=== PATIENT | female | born 1955 | race Caucasian/White ===

== ENCOUNTER → 2017-05-02 | Outpatient (CLI) | payer BC ==
[~2017-05-02] MED LIST: ESCI10TA55 PO; LISI1TAB6 PO
--- NOTE | 2017-05-02 13:42 | Diagnostic Imaging Report ---
PROCEDURE: US Thyroid. TECHNIQUE: Multiple real-time grayscale images were obtained of the thyroid in various projections. INDICATION: Thyroid nodule. FINDINGS: The right thyroid lobe is 4.5 x 1.3 x 1.3 cm. The left lobe is 3.2 x 1.1 x 1.1 cm. There is a nodule in the left lobe measuring 0.5 x 0.4 x 0.5 cm with peripheral vascularity seen. There is another nodule in the right lobe measuring 0.5 cm superiorly. No other nodules seen. When compared to the previous exam the right thyroid nodule was seen previously. IMPRESSION: Nonspecific thyroid nodules up to 0.5 cm seen bilaterally. Dictated by: Dictated on workstation # [id number]
--- NOTE | 2017-05-02 15:32 | Diagnostic Imaging Report ---
Bilateral screening mammogram 2D views with tomosynthesis. The current study was also evaluated with a Computer Aided Detection (CAD) system. INDICATION: Screening. No current complaints stated on the questionnaire. COMPARISON: 03/14/2013. FINDINGS: The breasts are composed of scattered fibroglandular densities. There are occasional benign-appearing calcifications. Allowing for technique and positional differences, no suspicious change is seen. IMPRESSION: No significant change. ACR BI-RADS Category 2: Benign findings. Result letter will be mailed to the patient. Note: At least 10% of breast cancer is not imaged by mammography. Dictated by: Dictated on workstation # [id number]
== END ==
LOC: RAD 11:09
PROVIDERS: ATTEND Nurse Practitioner Family
DX: Z12.31 Encounter for screening mammogram for malignant neoplasm of breast (principal); E04.2 Nontoxic multinodular goiter
CPT/HCPCS: 76536; 77067

== ENCOUNTER → 2017-09-13 | Outpatient (CLI) | payer OTHER ==
--- NOTE | 2017-09-13 11:08 | Diagnostic Imaging Report ---
Right knee at 1025 hours. INDICATION: Knee pain. 3 views were obtained. FINDINGS: There is no fracture, dislocation or acute bony abnormality. As noted on the prior exam of 02/16/2015, there is mild/moderate narrowing of the medial compartment of the knee joint and mild narrowing of the patellofemoral space. Lateral compartment is fairly well-maintained. The soft tissues are unremarkable. IMPRESSION: 1. There is no evidence for an acute bony abnormality. 2. The degenerative disease involving the knee joint seen on the prior exam in 2014 has not progressed. Dictated by: Dictated on workstation # [id number]
== END ==
LOC: RAD 09:55
PROVIDERS: ATTEND Surgery
DX: Z02.71 Encounter for disability determination (principal); M17.11 Unilateral primary osteoarthritis, right knee
CPT/HCPCS: 73560

== ENCOUNTER 2019-01-23 19:44 | Outpatient (CLI) | payer MEDICARE, OTHER | END 2019-01-24 06:10 | disposition home or self-care (01) | LOC: SLEEP 19:44 | PROVIDERS: ATTEND Family Medicine | DX: G47.10 Hypersomnia, unspecified (principal); G47.36 Sleep related hypoventilation in conditions classified elsewhere; R06.83 Snoring; I10 Essential (primary) hypertension | CPT/HCPCS: 95810 ==

== ENCOUNTER 2019-05-31 11:15 | Outpatient (RCR) | payer MEDICARE, OTHER | END 2019-05-31 12:12 | disposition home or self-care (01) | PROVIDERS: ATTEND Nurse Practitioner Family | DX: M54.9 Dorsalgia, unspecified (principal); R26.89 Other abnormalities of gait and mobility ==

== ENCOUNTER → 2019-10-16 | Outpatient (CLI) | payer MEDICARE, OTHER ==
[~2019-10-16] MED LIST changes: +LISI1TAB29 PO; -LISI1TAB6 PO
--- NOTE | 2019-10-16 15:00 | Diagnostic Imaging Report ---
INDICATION: Routine screening. Comparison is made prior mammogram from 05/02/2017 and 03/05/2013. 2-D and 3-D bilateral screening mammography was performed with CAD. Scattered fibroglandular densities are identified bilaterally. There are densities identified in the central aspects of both breasts on the MLO views. While these most likely represent superimposed tissue, additional views are recommended. No definite corresponding density on the CC view is identified. There are vascular calcifications. No malignant-appearing microcalcifications are seen. Axillae are unremarkable. IMPRESSION: BI-RADS 0 Bilateral breast densities. Additional views are recommended for further evaluation. Dictated by: Dictated on workstation # [id number]
--- NOTE | 2019-10-16 16:31 | Diagnostic Imaging Report ---
INDICATION: Postmenopausal state, screening for osteoporosis COMPARISON: 06/16/2007 FINDINGS: AP Spine L1-L4: [BMD (g/cm2): 1.058] [T-Score: -1.2] [Z-Score: 0.2] [BMD Previous: 1.239] [BMD % Change: -14.6] LT Hip Neck: [BMD (g/cm2): 0.771] [T-Score: -1.9] [Z-Score: -0.6] LT Hip Total: [BMD (g/cm2):0.827] [T-Score:-1.4] [Z-Score: -0.4] [BMD Previous: 0.935] [BMD % Change: -11.6] RT Hip Neck: [BMD (g/cm2):0.766] [T-Score:-2.0] [Z-Score:-0.6] RT Hip Total: [BMD (g/cm2):0.801] [T-score:-1.6] [Z-Score:-0.6] [BMD Previous:0.978] [BMD % Change:-18.1] *Indicates significant change from prior examination based on 95% confidence level. World Health Organization criteria for BMD interpretation classify patients as Normal (T-score at or above -1.0), Osteopenic (T-score between -1.0 and -2.5) or Osteoporotic (T-score at or below -2.5). LIMITATIONS AND MODIFICATION: None. FRACTURE RISK (FRAX SCORE): The ten year probability of (%): Major Osteoporotic Fracture: [10.7] Hip Fracture: [1.6] IMPRESSION: 1. Osteopenia (Low bone mass). 2. No significant change in bone mineral density since prior examination. 3. See below National Osteoporosis Foundation guidelines on when to potentially initiate pharmacologic therapy. Based on the National Osteoporosis Foundation Guidelines, pharmacologic treatment should be initiated in any of the following, unless clinical conditions suggest otherwise: * Any patient with prior fragility fracture of the hip or vertebrae. A spine fracture indicates 5X risk for subsequent spine fracture and 2X risk for subsequent hip fracture. * Osteoporosis (T-score <-2.5). * Postmenopausal women and men age 50 and older with low bone mass/osteopenia (T-score between -1.0 and -2.5) by DXA and 10-year major osteoporotic fracture greater than 20% or a 10-year probability of hip fracture greater than 3%. These fracture risks are supplied above in the FRAX score, if applicable. * Clinician judgement and/or patient preferences may indicate treatment for people with 10-year fracture probabilities above or below these levels. Dictated by: Dictated on workstation # [id number]
== END ==
LOC: RAD 13:01
PROVIDERS: ATTEND Family Medicine
DX: Z13.820 Encounter for screening for osteoporosis (principal); Z12.31 Encounter for screening mammogram for malignant neoplasm of breast; M85.80 Other specified disorders of bone density and structure, unspecified site; Z78.0 Asymptomatic menopausal state
CPT/HCPCS: 77067; 77080

== ENCOUNTER 2019-12-25 05:40 | Outpatient (RCR) | payer MEDICARE, OTHER | END 2019-12-25 12:00 | disposition home or self-care (01) | LOC: PREOP 05:40 | PROVIDERS: ATTEND Surgery | DX: Z01.818 Encounter for other preprocedural examination (principal) ==

== ENCOUNTER 2020-01-17 05:41 | Outpatient (RCR) | payer MEDICARE, OTHER ==
[~2020-01-17] VITALS: Ht 157 cm; Wt 72.7 kg
[~2020-01-17 05:41] MED LIST changes: +DULO60CA6 PO; +FEXO1TAB43 PO; +LISI10TA2 PO; +PANT40TA3 PO
[2020-01-22] MEDS ORDERED: SUCR1TAB36 PO (08:54)
== END 2020-01-17 15:05 | disposition home or self-care (01) ==
LOC: PREOP 05:41
PROVIDERS: ATTEND Surgery
DX: Z01.812 Encounter for preprocedural laboratory examination (principal); K21.9 Gastro-esophageal reflux disease without esophagitis; Z20.828 Contact with and (suspected) exposure to other viral communicable diseases
CPT/HCPCS: 87635

== ENCOUNTER 2020-01-22 06:55 | Day surgery (SDC) | payer MEDICARE, OTHER ==
[~2020-01-22] VITALS: Ht 157 cm; Wt 72.7 kg
[2020-01-22 07:00] VITALS: BP 157/81
--- OUTSIDE RECORDS SUMMARY | 2020-01-22 07:03 | XMS REPORT | Summary of Care ---
Author Author [facility] er Organization [facility] er Address Unknown Phone Unavailable Encounter [facility] Riggs [id number] Date(s): 03/24/17 - 03/24/17 [facility] [address] [id number] Final: Macular cyst, hole, or pseudohole, right eye Final: Essential (primary) hypertension Final: Hyperlipidemia, unspecified Final: Body mass index (BMI) 30.0-30.9, adult Discharge Disposition: Home - 01 Attending Physician: PAULA ZHANG MD Admitting Physician: PAULA ZHANG MD Referring Physician: PAULA ZHANG MD Vital Signs Most recent to 1 oldest [Reference Range]: Vital Signs Routine Assessment Status/Type (03/24/17 8:59 AM) Temperature 97.8 DegF [96.8-99.7 DegF] (03/24/17 8:45 AM) Temp Method Temporal (03/24/17 8:45 AM) Heart Rate 77 bpm (03/24/17 8:59 AM) Respiratory Rate 16 br/min [14-20 br/min] (03/24/17 8:45 AM) Blood Pressure 137/80 mmHg [90-180/50-90 mmHg] (03/24/17 8:59 AM) NIBP MAP Calc 84 (03/24/17 8:53 AM) BP Cuff Size Large (03/24/17 8:45 AM) Problem List No data available for this section Allergies, Adverse Reactions, Alerts No Known Allergies Medications Aleve 220 mg, PO, Q12H (Every 12 hours), PRN as needed for pain, 0 Refill(s), Indicati on: Pain Start Date: 03/21/17 Status: Ordered fenofibrate 120 mg oral tablet = 1 TAB, PO, Daily, 0 Refill(s), Indication: High Cholesterol Start Date: 03/21/17 Status: Ordered hydroCHLOROthiazide-lisinopril 12.5 mg-10 mg oral tablet 1 TAB, PO, Daily, 0 Refill(s), Indication: High Blood Pressure Start Date: 03/21/17 Status: Ordered ibuprofen 800 mg, PO, Q8H (Every 8 hours), PRN as needed for pain, 0 Refill(s), Indication : Pain Start Date: 03/21/17 Status: Ordered Pepcid 20 mg oral tablet 1 TAB, PO, Daily, 0 Refill(s), Indication: Reflux Start Date: 03/21/17 Status: Ordered PROzac 20 mg oral capsule 1 CAP, PO, Daily, 0 Refill(s), Indication: Depression Start Date: 03/21/17 Status: Ordered Tylenol 1,000 mg, PO, BID (2 times a day), PRN as needed for pain, 0 Refill(s), Indicati on: Pain Start Date: 03/21/17 Status: Ordered Results No data available for this section Immunizations No data available for this section Procedures Procedure Date Related Diagnosis Body Site Eye Vitrectomy Mini1 03/24/17 1auto-populated from documented surgical case Social History No data available for this section Functional Status No data available for this section Assessment and Plan No data available for this section Hospital Discharge Instructions No data available for this section
--- OUTSIDE RECORDS SUMMARY | 2020-01-22 07:03 | XMS REPORT | Summary of Care ---
Author Author [facility] er Organization [facility] er Address Unknown Phone Unavailable Encounter [facility] Riggs [id number] Date(s): 03/24/17 - 03/24/17 [facility] [address] [address] Discharge Disposition: Home - 01 Attending Physician: [...]
--- OUTSIDE RECORDS SUMMARY | 2020-01-22 07:03 | XMS REPORT | Summary of Care ---
Author Author [facility] er Organization [facility] er Address Unknown Phone Unavailable Encounter [facility] Riggs [id number] Date(s): 03/24/17 - 03/24/17 [facility] [address] [address] Discharge Disposition: Home - 01 Attending Physician: [...]
--- OUTSIDE RECORDS SUMMARY | 2020-01-22 07:03 | XMS REPORT | Summary of Care ---
Author Author [facility] er Organization [facility] er Address Unknown Phone Unavailable Encounter [facility] Riggs [id number] Date(s): 03/24/17 - 03/24/17 [facility] [address] [address] Discharge Disposition: Home - 01 [...]
--- OUTSIDE RECORDS SUMMARY | 2020-01-22 07:04 | XMS REPORT | Summary of Care ---
Author Author [facility] er Organization [facility] er Address Unknown Phone Unavailable Encounter [facility] Riggs [id number] Date(s): 03/24/17 - 03/24/17 [facility] [address] [address] Final: Macular cyst, hole, or pseudohole, right [...]
--- OUTSIDE RECORDS SUMMARY | 2020-01-22 07:04 | XMS REPORT | Summary of Care ---
Author Author [facility] er Organization [facility] er Address Unknown Phone Unavailable Encounter [facility] Riggs [id number] Date(s): 03/24/17 - 03/24/17 [facility] [address] [address] Discharge Disposition: Home - 01 Attending [...]
--- OUTSIDE RECORDS SUMMARY | 2020-01-22 07:04 | XMS REPORT | Continuity of Care Document ---
Author [facility] Organization [facility] Address Unknown Phone Unavailable Care Team Providers Care Protozoologist Name Role Phone [facility] Unavailable Unavailable Problems Problem Status Onset Date Classification Date Reported Comments Source MACULAR CYST, HOLE, OR PSEUDOHOLE, RIGHT Active 03/24/2017 [facility] ESSENTIAL (PRIMARY) HYPERTENSION Active 03/24/2017 [facility] HYPERLIPIDEMIA, UNSPECIFIED Ac tive 03/24/2017 [facility] BODY MASS INDEX (BMI) 30.0-30.9, ADULT Active 03/24/2017 [facility] Macular cyst, hole, or pseudohole, right eye Final 04/03 [facility] Essential (primary) hypertension Final 04/03 [facility] Hyperlipidemia, unspecified Final 04/03/2017 [facility] Body mass index (BMI) 30.0-30.9, adult Final 04/03 [facility] er Medications Medication Details Route Status Patient Instructions Ordering Provider Order Date Source Tylenol 1,000 mg, PO, BID (2 t imes a day), PRN as needed for pain, 0 Refill(s), Indication: Pain Active 03/21/2017 [facility] Famotidine 20 MG Oral Tablet [Pepcid] 1 TAB, PO, Daily, 0 Refill(s), Indication: Reflux Active 03/21/2017 [facility] Aleve 220 mg, PO, Q12H (Every 12 hours), PRN as needed for pain, 0 Refill(s), Indication: Pain Active 03/21/2017 [facility] Fenofibrate 120 MG Oral Tablet = 1 TAB, PO, Daily, 0 Refill(s), Indication: High Cholesterol Active 03/21/2017 [facility] Ibuprofen 800 mg, PO, Q8H (Sumi ry 8 hours), PRN as needed for pain, 0 Refill(s), Indication: Pain Active 03/21/2017 [facility] Fluoxetine 20 MG Oral Capsule [Prozac] 1 CAP, PO, Daily, 0 Refill(s), Indication: Depression Active 03/21/2017 [facility] Hydrochlorothiazide 12.5 MG / Lisinopril 10 MG Oral Tablet 1 TAB, PO, Daily, 0 Refill(s), Indicatio n: High Blood Pressure Active 03/21/2017 [facility] Allergies, Adverse Reactions, Alerts No Known Medication Allergies Immunizations No Data Provided for This Section Results Order Name Results Value Reference Range Date Interpretation Comments Source No data available for this section No data available for this section [facility] Pathology Reports No Data Provided for This Section Diagnostic Reports No Data Provided for This Section Consultation Notes Results Value Date Source Operative Report Patient: CARLOS JEONG Age: 61 years Sex: Female : 1955 Associated Diagnoses: None Author: PAULA ZHANG MD Operative Information Post-Op Diagnosis: Same as Pre-Operative Diagnosis. Procedure: 1. 25 gauge transconjunctival pars plana vitrectomy. 2. Membranectomy with removal of accounting intern al limiting membrane. 3. Injection of autologous plasma and t hrombin. 4. Air/fluid/gas exchange with 18% SF6. All was done to the Right eye. . Indication: Macular Hole with PLTH. Surgeon(s): PAULA ZHANG MD. Description of Procedure: The patient was taken to the operating room and placed onto the operating table in the supine position. After appropriate monitors and IV were started, the patient received IV sedation. Under sedation, a retrobulbar injection consisting of a 50/50 mixture of Lidocaine 2% and Marcaine 0.75% was given to the retrobulbar space of the Right eye. Right eye was then prepped and draped in the usual standard fashion. A wire lid speculum was placed in the Right eye. 25 gauge transconjunctival trocars were placed 4.0 mm posterior to the limbus at the 8:00, 10:00 and 2:00 position. The infusion cannula was placed into the inferotemporal cannula. The light pipe was placed in the superotemporal cannula. The BIOM was swung into position and focused. A total and complete pars plana vitrectomy was done. ICG was used to stain the internal limiting membrane. This was removed with positive action forceps. An air/fluid exchange was done. One drop of autologous plasma and 1 drop of thrombin was placed into the macular hole. 50 mL of 18% SF6 was lavaged into the infusion cannula and out through the superonasal cannula. All 3 cannulas were removed and felt to be self sealing. Lid speculum was removed and TobraDex ointment was injected into the superior fornix. The eye was tight patched. The patient was taken to the recovery room in stable condition. There were no perioperative complications to the surgery. . Complications: None. Estimated blood loss: None. Patient Condition: Good. 03/30/2017 [facility] Discharge Summaries No Data Provided for This Section History and Physicals No Data Provided for This Section Vital Signs Vital Sign Value Date Comments Source Vital Signs Status/Type Routin e Assessment (03/24/17 8:59 AM) 03/24/2017 [facility] Inet NIBP Systolic 137 mm[Hg] 03/24/2017 [facility] Inet NIBP Diastolic 80 mm[Hg] 03/24/2017 [facility] Heart Rate 77 bpm 03/24/2017 [facility] NIBP MAP Calc 84 03/24/2017 [facility] Temperature 97.8 [degF] 03/24/2017 [facility] Temp Method Temporal (03/24/17 8:45 AM) 03/24/2017 [facility] Respiratory Rate 16 br/min 03/24/2017 [facility] BP Cuff Size Large (03/24/17 8: 45 AM) 03/24/2017 [facility] Encounters Location Location Details Encounter Type Encounter Number Reason For Visit Attending Provider ADM Date DC Date Status Source [facility] Outpatient Day Surgery [id number] PAULA ZHANG MD 03/24/2017 03/24/2017 [facility] Procedures Procedure Code Date Perfomer Comments Source Eye Vitrectomy Mini<sup>1</sup> 03/24/2017 auto-populated from documented surgical case [facility] Plan of Care No Data Provided for This Section Social History No Data Provided for This Section Assessment and Plan No Data Provided for This Section Family History No Data Provided for This Section Advance Directives No Data Provided for This Section Functional Status No Data Provided for This Section
--- OUTSIDE RECORDS SUMMARY | 2020-01-22 07:04 | XMS REPORT | Summary of Care ---
Author Author [facility] er Organization [facility] er Address Unknown Phone Unavailable Encounter [facility] Riggs [id number] Date(s): 03/24/17 - 03/24/17 [facility] [address] [address] Final: Macular cyst, hole, or pseudohole, right [...]
--- OUTSIDE RECORDS SUMMARY | 2020-01-22 07:04 | XMS REPORT | Summary of Care ---
Author Author [facility] er Organization [facility] er Address Unknown Phone Unavailable Encounter [facility] Riggs [id number] Date(s): 03/24/17 - 03/24/17 [facility] [address] [address] Final: Macular cyst, hole, or pseudohole, right [...]
--- OUTSIDE RECORDS SUMMARY | 2020-01-22 07:04 | XMS REPORT | Summary of Care ---
Author Author [facility] er Organization [facility] er Address Unknown Phone Unavailable Encounter [facility] Riggs [id number] Date(s): 03/24/17 - 03/24/17 [facility] [address] [address] Final: Macular cyst, hole, or [...]
--- OUTSIDE RECORDS SUMMARY | 2020-01-22 07:04 | XMS REPORT | CCD ---
Author Author Flavia Cox Organization Marcia Ponce MD, [facility] Address [address] [place] [address] Phone Care Team Providers Care Flow Trader Name Role Phone PP Unavailable CCM Unavailable Summary Purpose Interface Exchange Insurance Providers Payer name Policy type / Coverage type Covered alliance party ID Effective Begin Date Effective End Date WPS Medicare Part B Medicare Part B [id number] Unknown Unknown Cigna Medicare Part B No Plan Member ID Provided Unknown Unknown Family history Mother Diagnosis Age At Onset Arthritis Unknown Stroke Unknown Hyperlipidemia Unknown Brother Diagnosis Age At Onset Hyperlipidemia Unknown Arthritis Unknown Father Diagnosis Age At Onset Hyperlipidemia Unknown Coronary Artery Disease Unknown Social History Social History Element Codes Description Effective Dates Marital status Unknown M arried DAVID 11/27/2018 Number of children Unknown 2 11/27/2018 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 11/27/[address]: 944127930 Never smoker 11/27/2018 Alcohol history Unknown occasionally drinks alcohol 11/27/2018 Allergies, Adverse Reactions, Alerts Substance Reaction Codes Entered Date Inactivated Date Status * NO KNOWN DRUG DINA RGIES Unknown 11/27/2018 No Inactive Date Active Past Medical History Illness Codes Condition Status Onset Date Resolved Date Acute laryngopharyng itis ICD-9: 465.0 ICD-10: J06.0 Active 02/07/2019 Unknown Cough ICD-9: 786.2 ICD-10: R05 Active 04/16/2019 Unknown Other allergic rhinitis ICD-9: 477.8 ICD-10: J30.89 Active 11/27/2018 Unknown Gastro-esophageal re flux disease without esophagitis ICD-9: 530.81 ICD-10: K21.9 Active 11/27/2018 Unknown Other dorsalgia ICD-9: 724.5 ICD-10: M54.89 Active 04/05/2019 Unknown Other idiopathic sco liosis, thoracic region ICD-9: 737.30 ICD-10: M41.24 Active 04/05/2019 Unknown Obstructive sleep ap heber (adult) (pediatric) ICD-9: 327.23 ICD-10: G47.33 Active 01/03/2019 Unknown Other hypersomnia ICD-9: 780.54 ICD-10: G47.19 Active 01/03/2019 Unknown Snoring ICD-9: 786.09 ICD-10: R06.83 Active 01/03/2019 Unknown Generalized anxiety disorder ICD-9: 300.02 ICD-10: F41.1 Active 11/27/2018 Unknown Major depressive dis order, recurrent, mild ICD-9: 296.31 ICD-10: F33.0 Active 11/27/2018 Unknown Problems Condition Codes Effectiv e Dates Condition Status Acute laryngopharyng itis ICD-9: 465.0 ICD-10: J06.0 02/07/2019 Active Cough ICD-9: 786.2 ICD-10: R05 04/16/2019 Active Other allergic rhinitis ICD-9: 477.8 ICD-10: J30.89 11/27/2018 Active Gastro-esophageal re flux disease without esophagitis ICD-9: 530.81 ICD-10: K21.9 11/27/2018 Active Other dorsalgia ICD-9: 724.5 ICD-10: M54.89 04/05/2019 Active Other idiopathic sco liosis, thoracic region ICD-9: 737.30 ICD-10: M41.24 04/05/2019 Active Obstructive sleep ap heber (adult) (pediatric) ICD-9: 327.23 ICD-10: G47.33 01/03/2019 Active Other hypersomnia ICD-9: 780.54 ICD-10: G47.19 01/03/2019 Active Snoring ICD-9: 786.09 ICD-10: R06.83 01/03/2019 Active Generalized anxiety disorder ICD-9: 300.02 ICD-10: F41.1 11/27/2018 Active Major depressive dis order, recurrent, mild ICD-9: 296.31 ICD-10: F33.0 11/27/2018 Active Medications Medication Codes Instruc tions Start Date Stop Date Sta tus Fill Instructions amoxicillin 500 mg c apsule RxNorm: 334895 1 Capsule(s) PO TID 04/16/2019 04/25/2019 Active prednisone 20 mg tablet RxNorm: 620425 2 Tablet(s) PO daily 04/16/2019 04/20/2019 Inactive pantoprazole 40 mg t ablet,delayed release RxNorm: 525886 1 Tablet(s) PO QPM 04/05/2019 03/29/2020 Ac tive Zithromax Z-Carlos 250 mg tablet RxNorm: 783669 Tablet(s) PO UD 02/07/2019 No Stop Date Active Kenalog 40 mg/mL denise pension for injection RxNorm: 1044413 1 Milliliter(s) Inj 02/07/2019 02/07/2019 In active lisinopril 10 mg tablet RxNorm: 797870 1 Tablet(s) PO daily 01/16/2019 07/14/2019 Active meloxicam 7.5 mg tablet RxNorm: 545357 1 Tablet(s) PO daily . May increase to t wice daily if needed 12/05/2018 12/04/2018 Inactive meloxicam 7.5 mg tablet RxNorm: 096081 1 Tablet(s) PO daily . May increase to t wice daily if needed 12/05/2018 03/04/2019 Inactive Cymbalta 60 mg capsu le,delayed release RxNorm: 533900 1 Capsule(s) PO daily 11/27/2018 05/25/2019 Ac tive Lexapro 20 mg tablet RxNorm: 1 Tablet(s) PO daily 11/27/2018 11/27/2018 Inactive Kenalog 40 mg/mL denise pension for injection RxNorm: 3774444 Milliliter(s) Inj 11/27/2018 11/27/2018 In active lisinopril 10 mg tablet RxNorm: 941386 1 Tablet(s) PO daily No Start Date 01/15/2019 Inactive Medication Administered Medication Codes Instruc tions Start Date Status Kenalog 40 mg/mL suspension for injection RxNorm: 1071015 1Milliliter 02/07/2019 N o longer Active Kenalog 40 mg/mL suspension for injection RxNorm: 0942327 Milliliter 11/27/2018 No longer Active Immunizations No Immunization data Assessments Condition Codes Effectiv e Dates Other allergic rhinitis ICD-10: J30. 89 ICD-9: 477.8 04/16/2019 Cough ICD-10: R05 ICD-9: 786.2 04/16/2019 Acute laryngopharyngitis ICD-10: J06 .0 ICD-9: 465.0 04/16/2019 Other dorsalgia ICD-10: M54.89 ICD-9: 724.5 04/05/2019 Gastro-esophageal reflux disease without esophagitis ICD-10: K21.9 ICD-9: 530.81 04/05/2019 Other idiopathic scoliosis, thoracic region ICD-10: M41.24 ICD-9: 737.30 04/05/2019 Obstructive sleep apnea (adult) (pediatric) ICD-10: G47.33 ICD-9: 327.23 01/03/2019 Snoring ICD-10: R06.83 ICD-9: 786.09 01/03/2019 Other hypersomnia ICD-10: G47.19 ICD-9: 780.54 01/03/2019 Major depressive disorder, recurrent, mild ICD-10: F33.0 ICD-9: 296.31 11/27/2018 Generalized anxiety disorder ICD-10: F41.1 ICD-9: 300.02 11/27/2018 Reason For Visit Reason For Visit Effective Dates Notes sinus congestion 04/16/2019 back pain 04/05/2019 sore throat 02/07/2019 fatigue 01/03/2019 back pain 11/27/2018 Results Observation Observation Code Item Item Code Result Date Cbc With Differential Ord2 WBC 7.96 K/ul 12/04/2018 Cbc With Differential Ord2 RBC 5.17 M/ul 12/04/2018 Cbc With Differential Ord2 HGB 15.3 g/dl 12/04/2018 Cbc With Differential Ord2 Neut% 53.8 % 12/04/2018 Cbc With Differential Ord2 HCT 47.1 % 12/04/2018 Cbc With Differential Ord2 Lymph% 37.6 % 12/04/2018 Cbc With Differential Ord2 MCV 91.1 fl 12/04/2018 Cbc With Differential Ord2 MCH 29.6 pg 12/04/2018 Cbc With Differential Ord2 [place]% 7.7 % 12/04/2018 Cbc With Differential Ord2 Eos% 0.6 % 12/04/2018 Cbc With Differential Ord2 MCHC 32.5 pg 12/04/2018 Cbc With Differential Ord2 Baso% 0.3 % 12/04/2018 Cbc With Differential Ord2 PLT 301 K/ul 12/04/2018 Cbc With Differential Ord2 Neut ABS# 4.29 K/ul 12/04/2018 Cbc With Differential Ord2 RDW 14.7 % 12/04/2018 Cbc With Differential Ord2 Lymph ABS# 2.99 K/ul 12/04/2018 Cbc With Differential Ord2 [place] ABS# 0.6 K/ul 12/04/2018 Cbc With Differential Ord2 Eos ABS# 0.1 K/ul 12/04/2018 Cbc With Differential Ord2 Baso ABS# 0.0 K/ul 12/04/2018 Lipid Ord30 CHOL 228 mg/dL 12/04/2018 Lipid Ord30 HDL 71.0 mg/dl 12/04/2018 Lipid Ord30 TRIG 184 mg/dL 12/04/2018 Lipid Ord30 LDL 120 mg/dL 12/04/2018 Lipid Ord30 C/HDL 3.2 Ratio 12/04/2018 Tsh Ord6 TSH (3rd IS) 1.77 uIU/mL 12/04/2018 Comp Metabolic Khs606 NA 137 mEq/L 12/04/2018 Comp Metabolic Kxn833 K 5.0 mEq/L 12/04/2018 Comp Metabolic Nvs549 CL 101 mEq/L 12/04/2018 Comp Metabolic Ica231 CO2 31.0 mEq/L 12/04/2018 Comp Metabolic Aii287 AN ION GAP 10 12/04/2018 Comp Metabolic Rvh375 GL UCOSE 95 mg/dL 12/04/2018 Comp Metabolic Mzk129 Cr eat 0.7 mg/dL 12/04/2018 Comp Metabolic Vad396 eG FR 94 ml/min/1.73m2 12/04 Comp Metabolic Qmx701 BUN 26 mg/dL 12/04/2018 Comp Metabolic Sov912 B/ C Ratio 38.8 Ratio 12/04/2018 Comp Metabolic Ssd541 CA LCIUM 10.2 mg/dL 12/04/2018 Comp Metabolic Xqq450 AL K PHOS 83 U/L 12/04/2018 Comp Metabolic Yyj135 T(SGOT) 13 U/L 12/04/2018 Comp Metabolic Sze992 AL T(SGPT) 12 U/L 12/04/2018 Comp Metabolic Cvh707 BI LI T 0.5 mg/dL 12/04/2018 Comp Metabolic Oal923 AL BUMIN 4.5 g/dL 12/04/2018 Comp Metabolic Hdu727 TP RO 7.3 g/dL 12/04/2018 Comp Metabolic Ygx232 GL OB 2.8 g/dL 12/04/2018 Comp Metabolic Sbe545 A/ G Ratio 1.6 Ratio 12/04/2018 Comp Metabolic Jdl497 Os mo 278 mOsmo 12/04/2018 Review of Systems System Result Effective Dates Constitutional recent illness 04/16/2019 Constitutional chills Constitutional No diaphoresis 04/16/2019 Constitutional fever 04/2019 Eyes No eye erythema 04/2019 Ears/Nose/Throat/Neck nasal allergies 04/16/2019 Ears/Nose/Throat/Neck nasal discharge 04/16/2019 Ears/Nose/Throat/Neck postnasal drip 04/16/2019 Ears/Nose/Throat/Neck sinus congestion 04/16/2019 Ears/Nose/Throat/Neck sore throat 04/16/2019 Cardiovascular No chest pain/pressure 04/16/2019 Cardiovascular No dyspnea 04/16/2019 Respiratory No chest congestion 04/16/2019 Respiratory cough 2018 Respiratory No dyspnea 0 04/16/2019 Gastrointestinal No constipation 04/16/2019 Gastrointestinal No diarrhea 04/16/2019 Gastrointestinal No nausea 04/16/2019 Gastrointestinal No vomiting 04/16/2019 Dermatologic No rash 04/2019 Neurologic No alteration of consciousness 04/16/2019 Neurologic No mental status change 04/16/2019 Constitutional recent illness 04/05/2019 Constitutional No anorexia 04/05/2019 Constitutional No chills 04/05/2019 Constitutional fatigue 0 04/05/2019 Constitutional insomnia 04/05/2019 Constitutional No malaise 04/05/2019 Eyes No eye discharge Eyes No eye erythema Ears/Nose/Throat/Neck No dizziness 04/05/2019 Ears/Nose/Throat/Neck nasal allergies 04/05/2019 Cardiovascular No chest pain/pressure 04/05/2019 Cardiovascular No dyspnea 04/05/2019 Cardiovascular No edema 04/05/2019 Respiratory No productive sputum 04/05/2019 Respiratory No chest congestion 04/05/2019 Respiratory daytime hypersomnolence 04/05/2019 Gastrointestinal No abdominal pain 04/05/2019 Gastrointestinal No diarrhea 04/05/2019 Gastrointestinal dyspepsia 04/05/2019 Gastrointestinal gastroesophageal reflux 04/05/2019 Gastrointestinal No nausea 04/05/2019 Gastrointestinal No vomiting 04/05/2019 Genitourinary/Nephrology No dysuria 04/05/2019 Musculoskeletal back pain 04/05/2019 Dermatologic No rash Neurologic No alteration of consciousness 04/05/2019 Psychiatric anxiety 03/09 Psychiatric depression 0 04/05/2019 Constitutional recent illness 02/07/2019 Constitutional chills Constitutional No diaphoresis 02/07/2019 Constitutional No fever 02/07/2019 Eyes No eye erythema 10/2018 Ears/Nose/Throat/Neck nasal allergies 02/07/2019 Ears/Nose/Throat/Neck nasal discharge 02/07/2019 Ears/Nose/Throat/Neck postnasal drip 02/07/2019 Ears/Nose/Throat/Neck sinus congestion 02/07/2019 Ears/Nose/Throat/Neck sore throat 02/07/2019 Cardiovascular No chest pain/pressure 02/07/2019 Cardiovascular No dyspnea 02/07/2019 Respiratory No chest congestion 02/07/2019 Respiratory cough 2018 Respiratory No dyspnea 0 02/07/2019 Gastrointestinal No constipation 02/07/2019 Gastrointestinal No diarrhea 02/07/2019 Gastrointestinal No nausea 02/07/2019 Gastrointestinal No vomiting 02/07/2019 Dermatologic No rash 10/2018 Neurologic No alteration of consciousness 02/07/2019 Neurologic No mental status change 02/07/2019 Constitutional recent illness 01/03/2019 Constitutional No anorexia 01/03/2019 Constitutional No chills 01/03/2019 Constitutional diaphoresis 01/03/2019 Constitutional fatigue 0 01/03/2019 Constitutional insomnia 01/03/2019 Constitutional No malaise 01/03/2019 Eyes No eye discharge Eyes No eye erythema Ears/Nose/Throat/Neck No dizziness 01/03/2019 Ears/Nose/Throat/Neck headache 01/03/2019 Ears/Nose/Throat/Neck nasal allergies 01/03/2019 Cardiovascular No chest pain/pressure 01/03/2019 Cardiovascular No dyspnea 01/03/2019 Cardiovascular No edema 01/03/2019 Respiratory No productive sputum 01/03/2019 Respiratory No chest congestion 01/03/2019 Respiratory cough 2018 Gastrointestinal No abdominal pain 01/03/2019 Gastrointestinal constipation 01/03/2019 Gastrointestinal No diarrhea 01/03/2019 Gastrointestinal gastroesophageal reflux 01/03/2019 Genitourinary/Nephrology No dysuria 01/03/2019 Musculoskeletal back pain 01/03/2019 Dermatologic No rash Neurologic No alteration of consciousness 01/03/2019 Psychiatric anxiety 12/07 Psychiatric depression 0 01/03/2019 Gastrointestinal dyspepsia 01/03/2019 Gastrointestinal No nausea 01/03/2019 Gastrointestinal No vomiting 01/03/2019 Respiratory daytime hypersomnolence 01/03/2019 Respiratory snoring 12/07 Gastrointestinal gastroesophageal reflux 11/27/2018 Gastrointestinal constipation 11/27/2018 Gastrointestinal No diarrhea 11/27/2018 Gastrointestinal No abdominal pain 11/27/2018 Ears/Nose/Throat/Neck nasal allergies 11/27/2018 Ears/Nose/Throat/Neck nasal discharge 11/27/2018 Constitutional recent illness 11/27/2018 Constitutional No anorexia 11/27/2018 Constitutional No chills 11/27/2018 Constitutional No night sweats 11/27/2018 Constitutional diaphoresis 11/27/2018 Constitutional No fatigue 11/27/2018 Constitutional No fever 11/27/2018 Constitutional No insomnia 11/27/2018 Constitutional No malaise 11/27/2018 Constitutional No weight loss 11/27/2018 Constitutional No weight gain 11/27/2018 Eyes No eye discharge Eyes No eye erythema Cardiovascular No chest pain/pressure 11/27/2018 Cardiovascular No dyspnea 11/27/2018 Cardiovascular No edema 11/27/2018 Ears/Nose/Throat/Neck No dizziness 11/27/2018 Ears/Nose/Throat/Neck headache 11/27/2018 Respiratory No productive sputum 11/27/2018 Respiratory No chest congestion 11/27/2018 Respiratory cough 2018 Genitourinary/Nephrology No breast c omplaint 11/27/2018 Genitourinary/Nephrology No dysuria 11/27/2018 Musculoskeletal back pain 11/27/2018 Dermatologic No rash Neurologic No alteration of consciousness 11/27/2018 Psychiatric anxiety 11/07 Psychiatric depression 0 11/27/2018 Endocrine No dry or coarse skin 11/27/2018 Hematologic/Lymphatic No abnormal ec chymoses 11/27/2018 Physical Exam Exam Name System Name It em Name Status Result Effective Dates Notes Full Exam - ENT Constitutional general appearance Overall: well nourished 04/16/2019 None Full Exam - ENT Constitutional general appearance Overall: well developed 04/16/2019 None Full Exam - ENT Constitutional general appearance Overall: in no acute distress 04/16/2019 None Full Exam - ENT Ears/Nose/Throat otoscopic exam Overall: external auditory canals normal 04/16/2019 None Full Exam - ENT Ears/Nose/Throat otoscopic exam Left tympanic membrane: air-fluid le patrica 04/16/2019 None Full Exam - ENT Ears/Nose/Throat otoscopic exam Right tympanic membrane: air-fluid level 04/16/2019 None Full Exam - ENT Ears/Nose/Throat lips/teeth/gingiva Overall: benign lips 04/16/2019 None Full Exam - ENT Ears/Nose/Throat oropharynx Overall: oral mucosa clear 04/16/2019 None Full Exam - ENT Ears/Nose/Throat oropharynx Posterior Pharynx: clear post nasal drainage 04/16/2019 None Full Exam - ENT Ears/Nose/Throat oropharynx Posterior Pharynx: erythema 04/16/2019 None Full Exam - ENT Respiratory inspection Overall: no retractions 04/16/2019 None Full Exam - ENT Respiratory inspection Overall: normal rate 04/2019 None Full Exam - ENT Respiratory auscultation Overall: breath sounds clear bilater ally 04/16/2019 None Full Exam - ENT Cardiovascular auscultation of heart Rate: normal rate 04/16/2019 None Full Exam - ENT Cardiovascular auscultation of heart Rhythm: regular rhythm 04/16/2019 None Full Exam - ENT Lymphatic palpation of lymph nodes Overall: anterior cervical chain benign 04/16/2019 None Full Exam - ENT Lymphatic palpation of lymph nodes Overall: posterior cervical chain benign 04/16/2019 None Full Exam - ENT Neurologic mood and affect Overall: normal mood 04/16/2019 None Full Exam - ENT Neurologic mood and affect Overall: normal affect 04/16/2019 None Full Exam - ENT Neurologic orientation Overall: oriented to person, place a nd time 04/16/2019 None Full Exam - General 1994 Constitutional general appearance Overall: well developed 04/05/2019 None Full Exam - General 1994 Constitutional general appearance Overall: in no acute distress 04/05/2019 None Full Exam - General 1994 Constitutional general appearance Overall: well nourished 04/05/2019 None Full Exam - General 1994 Eyes pupils and irises Overall: pupils equal, round, reactive to light and accomodation 04/05/2019 None Full Exam - General 1994 Ears/Nose/Throat otoscopic exam Overall: external auditory canals clear 04/05/2019 None Full Exam - General 1994 Ears/Nose/Throat otoscopic exam Overall: tympanic membranes clear 04/05/2019 None Full Exam - General 1994 Ears/Nose/Throat oral cavity/pharynx/larynx Overall: oral mucosa clear 04/05/2019 None Full Exam - General 1994 Respiratory auscultation Overall: breath sounds clear bilaterally 04/05/2019 None Full Exam - General 1994 Respiratory respiratory effort/rhythm Overall: no retractions 04/05/2019 None Full Exam - General 1994 Respiratory respiratory effort/rhythm Overall: normal rate 04/05/2019 None Full Exam - General 1994 Cardiovascular auscultation of heart Overall: regular rate 04/05/2019 None Full Exam - General 1994 Cardiovascular auscultation of heart Overall: normal heart sounds 04/05/2019 None Full Exam - General 1994 Cardiovascular auscultation of heart Overall: no murmurs 04/05/2019 None Full Exam - General 1994 Abdomen abdominal exam Overall: no tenderness 04/05/2019 None Full Exam - General 1994 Abdomen abdominal exam Overall: normal bowel sounds 04/05/2019 None Full Exam - General 1994 Lymphatic neck nodes Overall: anterior cervical chain benign 04/05/2019 None Full Exam - General 1994 Lymphatic neck nodes Overall: posterior cervical chain benign 04/05/2019 None Full Exam - General 1994 Musculoskeletal gait and station Station: scoliosis 04/05/2019 None Full Exam - General 1994 Musculoskeletal head and neck Overall: head atraumatic 04/05/2019 None Full Exam - General 1994 Neurologic cranial nerves Overall: crainial nerves 2 - 12 grossly intact 04/05/2019 None Full Exam - General 1994 Psychiatric orientation/consciousness Overall: oriented to person, place and time 04/05/2019 None Full Exam - General 1994 Musculoskeletal spine, ribs and pelvis Spine: tender @ thoracic spine 04/05/2019 scoliotic curve thoracic and lumbar spine Full Exam - ENT Constitutional general appearance Overall: well nourished 02/07/2019 None Full Exam - ENT Constitutional general appearance Overall: well developed 02/07/2019 None Full Exam - ENT Constitutional general appearance Overall: in no acute distress 02/07/2019 None Full Exam - ENT Ears/Nose/Throat otoscopic exam Overall: external auditory canals normal 02/07/2019 None Full Exam - ENT Ears/Nose/Throat otoscopic exam Left tympanic membrane: air-fluid le patrica 02/07/2019 None Full Exam - ENT Ears/Nose/Throat otoscopic exam Right tympanic membrane: air-fluid level 02/07/2019 None Full Exam - ENT Ears/Nose/Throat lips/teeth/gingiva Overall: benign lips 02/07/2019 None Full Exam - ENT Ears/Nose/Throat oropharynx Overall: oral mucosa clear 02/07/2019 None Full Exam - ENT Ears/Nose/Throat oropharynx Posterior Pharynx: clear post nasal drainage 02/07/2019 None Full Exam - ENT Ears/Nose/Throat oropharynx Posterior Pharynx: erythema 02/07/2019 None Full Exam - ENT Respiratory inspection Overall: no retractions 02/07/2019 None Full Exam - ENT Respiratory inspection Overall: normal rate 10/2018 None Full Exam - ENT Respiratory auscultation Overall: breath sounds clear bilater ally 02/07/2019 None Full Exam - ENT Cardiovascular auscultation of heart Rate: normal rate 02/07/2019 None Full Exam - ENT Cardiovascular auscultation of heart Rhythm: regular rhythm 02/07/2019 None Full Exam - ENT Lymphatic palpation of lymph nodes Overall: anterior cervical chain benign 02/07/2019 None Full Exam - ENT Lymphatic palpation of lymph nodes Overall: posterior cervical chain benign 02/07/2019 None Full Exam - ENT Neurologic mood and affect Overall: normal mood 02/07/2019 None Full Exam - ENT Neurologic mood and affect Overall: normal affect 02/07/2019 None Full Exam - ENT Neurologic orientation Overall: oriented to person, place a nd time 02/07/2019 None Full Exam - General 1994 Constitutional general appearance Overall: well developed 01/03/2019 None Full Exam - General 1994 Constitutional general appearance Overall: in no acute distress 01/03/2019 None Full Exam - General 1994 Constitutional general appearance Overall: well nourished 01/03/2019 None Full Exam - General 1994 Ears/Nose/Throat otoscopic exam Overall: external auditory canals clear 01/03/2019 None Full Exam - General 1994 Ears/Nose/Throat otoscopic exam Overall: tympanic membranes clear 01/03/2019 None Full Exam - General 1994 Ears/Nose/Throat oral cavity/pharynx/larynx Overall: oral mucosa clear 01/03/2019 None Full Exam - General 1994 Respiratory auscultation Overall: breath sounds clear bilaterally 01/03/2019 None Full Exam - General 1994 Respiratory respiratory effort/rhythm Overall: no retractions 01/03/2019 None Full Exam - General 1994 Respiratory respiratory effort/rhythm Overall: normal rate 01/03/2019 None Full Exam - General 1994 Cardiovascular auscultation of heart Overall: regular rate 01/03/2019 None Full Exam - General 1994 Cardiovascular auscultation of heart Overall: normal heart sounds 01/03/2019 None Full Exam - General 1994 Cardiovascular auscultation of heart Overall: no murmurs 01/03/2019 None Full Exam - General 1994 Lymphatic neck nodes Overall: anterior cervical chain benign 01/03/2019 None Full Exam - General 1994 Lymphatic neck nodes Overall: posterior cervical chain benign 01/03/2019 None Full Exam - General 1994 Musculoskeletal gait and station Station: scoliosis 01/03/2019 None Full Exam - General 1994 Musculoskeletal head and neck Overall: head atraumatic 01/03/2019 None Full Exam - General 1994 Neurologic cranial nerves Overall: crainial nerves 2 - 12 grossly intact 01/03/2019 None Full Exam - General 1994 Psychiatric orientation/consciousness Overall: oriented to person, place and time 01/03/2019 None Full Exam - General 1994 Eyes pupils and irises Overall: pupils equal, round, reactive to light and accomodation 01/03/2019 None Full Exam - General 1994 Abdomen abdominal exam Overall: no tenderness 01/03/2019 None Full Exam - General 1994 Abdomen abdominal exam Overall: normal bowel sounds 01/03/2019 None Full Exam - General 1994 Constitutional general appearance Overall: well developed 11/27/2018 None Full Exam - General 1994 Constitutional general appearance Overall: in no acute distress 11/27/2018 None Full Exam - General 1994 Constitutional general appearance Overall: well nourished 11/27/2018 None Full Exam - General 1994 Psychiatric orientation/consciousness Overall: oriented to person, place and time 11/27/2018 None Full Exam - General 1994 Neurologic cranial nerves Overall: crainial nerves 2 - 12 grossly intact 11/27/2018 None Full Exam - General 1994 Integument inspection of skin Overall: few scattered moles, no gross abnormalities 11/27/2018 None Full Exam - General 1994 Musculoskeletal gait and station Station: scoliosis 11/27/2018 None Full Exam - General 1994 Musculoskeletal head and neck Overall: head atraumatic 11/27/2018 None Full Exam - General 1994 Lymphatic neck nodes Overall: anterior cervical chain benign 11/27/2018 None Full Exam - General 1994 Lymphatic neck nodes Overall: posterior cervical chain benign 11/27/2018 None Full Exam - General 1994 Cardiovascular auscultation of heart Overall: regular rate 11/27/2018 None Full Exam - General 1994 Cardiovascular auscultation of heart Overall: normal heart sounds 11/27/2018 None Full Exam - General 1994 Cardiovascular auscultation of heart Overall: no murmurs 11/27/2018 None Full Exam - General 1994 Respiratory auscultation Overall: breath sounds clear bilaterally 11/27/2018 None Full Exam - General 1994 Respiratory respiratory effort/rhythm Overall: no retractions 11/27/2018 None Full Exam - General 1994 Respiratory respiratory effort/rhythm Overall: normal rate 11/27/2018 None Full Exam - General 1994 Ears/Nose/Throat otoscopic exam Overall: external auditory canals clear 11/27/2018 None Full Exam - General 1994 Ears/Nose/Throat otoscopic exam Overall: tympanic membranes clear 11/27/2018 None Full Exam - General 1994 Ears/Nose/Throat oral cavity/pharynx/larynx Overall: oral mucosa clear 11/27/2018 None Procedures Procedure Codes Date TRIAMCINOLONE ACET I [place] NOS CPT-4: J3301 02/07/2019 THER/PROPH/DIAG INJ SC/IM CPT-4: 36321 02/07/2019 THER/PROPH/DIAG INJ SC/IM CPT-4: 47643 11/27/2018 TRIAMCINOLONE ACET I [place] NOS CPT-4: J3301 11/27/2018 Vital Signs Date Vital 04/16/2019 Blood Pressure 1: 136/80 Code: 8480-6 BMI: 29.6 Code: 96838-3 Heart Rate 1: 100 bpm Height: 5'2" SpO2: 98% Temperature: 36.6 (C ) / 97.9 (F) Weight: 159 lbs 04/05/2019 Blood Pressure 1: 142/80 Code: 8480-6 BMI: 29.2 Code: 19470-3 Heart Rate 1: 103 bpm Height: 5'2" SpO2: 96% Weight: 157 lbs 02/07/2019 Blood Pressure 1: 134/78 Code: 8480-6 Heart Rate 1: 101 bpm Height: 5'2" SpO2: 98% 01/03/2019 Blood Pressure 1: 130/48 Code: 8480-6 BMI: 30.7 Code: 18945-8 Heart Rate 1: 103 bpm Height: 5'2" SpO2: 98% Weight: 165 lbs 11/27/2018 Blood Pressure 1: 136/80 Code: 8480-6 BMI: 30.9 Code: 70350-3 Heart Rate 1: 88 bpm Height: 5'2" SpO2: 96% Weight: 166 lbs Functional Status No Functional Status data History of Present Illness Symptom Name Status Resu lt Effective Date Notes Location frontal sinuses 04/16/2019 None Quality constant 04/16/2019 None Quality fullness 04/16/2019 None Quality pressure 04/16/2019 None Onset and Resolution s udden in onset 04/16/2019 None Onset of Symptom 5 day s ago 04/16/2019 None Location diffusely 04/16/2019 None Quality aching 04/16/2019 None Quality constant 04/16/2019 None Quality scratchy 04/16/2019 None Onset and Resolution s udden in onset 04/16/2019 None Onset of Symptom 5 day s ago 04/16/2019 None Location both ears 04/16/2019 None Onset and Resolution s udden in onset 04/16/2019 None Location Cervical spine 04/05/2019 None Location lumbar spine 04/05/2019 None Location sacral spine 04/05/2019 None Quality chronic 04/05/2019 None Onset and Resolution o ngoing 04/05/2019 None Onset of Symptom _ yea rs ago 04/05/2019 None Frequency of Episodes daily 04/05/2019 None Pertinent Findings ext remity numbness 04/05/2019 both arms and legs: hx of carpla tunnel Pertinent Findings ext remity weakness 04/05/2019 both arms and legs: hx of carpal tunnel. Quality heartburn 04/05/2019 None Onset and Resolution o ngoing 04/05/2019 None Frequency of Episodes Denies daily 04/05/2019 at night Onset of Symptom 6 mon ths ago 04/05/2019 None Pertinent Findings hea rtburn 04/05/2019 None Pertinent Findings jennifer sea 04/05/2019 None Quality acute 02/07/2019 None Onset and Resolution s udden in onset 02/07/2019 None Pertinent Findings Den ies fever 02/07/2019 None Location in the lung 02/07/2019 None Quality acute 02/07/2019 None Location in the throat 02/07/2019 None Onset and Resolution D enies sudden in onset 02/07/2019 None Pertinent Findings Den ies dyspnea 02/07/2019 None Limitation on Activities does not limit activities 01/03/2019 None Onset and Resolution o ngoing 01/03/2019 None Quality chronic 01/03/2019 None Quality heartburn 01/03/2019 None Quality sour brash 01/03/2019 None Quality worsening 01/03/2019 None Onset of Symptom durin g adulthood 01/03/2019 None Onset and Resolution o ngoing 01/03/2019 None Significant Medications antacids 01/03/2019 intermittently Diet includes caffeine 01/03/2019 None Diet includes chocolate 01/03/2019 None Diet includes spicy fo ods 01/03/2019 None Pertinent Findings cough 01/03/2019 None Pertinent Findings hea rtburn 01/03/2019 None Onset and Resolution o ngoing 11/27/2018 None Onset of Symptom 3 wee ks ago 11/27/2018 None Pertinent Findings Den ies cough 11/27/2018 None Pertinent Findings Den ies decreased energy level 11/27/2018 None Pertinent Findings Den ies fever 11/27/2018 None Pertinent Findings blaire al obstruction 11/27/2018 None Severity mild 11/27/2018 None Frequency of Episodes unchanged 11/27/2018 None Length of Episodes 3 w eeks 11/27/2018 None Timing of Episodes all day long 11/27/2018 None Significant Medical Conditions allergic rhinitis 11/27/2018 None Triggers allergens 11/27/2018 None Location diffusely 11/27/2018 None Quality chronic 11/27/2018 None Onset and Resolution o ngoing 11/27/2018 None Onset of Symptom _ yea rs ago 11/27/2018 None Limitation on Activities moderately limits activities 11/27/2018 None Frequency of Episodes on and off 11/27/2018 None Triggers no known asso ciated factors 11/27/2018 None Initial treatment stre tching 11/27/2018 None Mechanism of injury un known 11/27/2018 None Radiating does not rad iate 11/27/2018 None Sports Participation n ot significant 11/27/2018 None Advance Directives No Advance Directive data Encounters Encounter Performer Loca tion Codes Date 71879 EST. PATIENT, LEVEL III Diagnosis: Acute laryngopharyngitis[ICD10: J06.0] Diagnosis: Other allergic rhinitis[ICD10: J30.89] Diagnosis: Cough[ICD10: R05] Alison Ponce MD, [facility] CPT-4: 40679 04/16/2019 ([id number] 05126 EST. P ATIENT, LEVEL IV Diagnosis: Gastro-esophageal reflux disease without esophagitis[ICD10: K21.9] Diagnosis: Other idiopathic scoliosis, thoracic region[ICD10: M41.24] Diagnosis: Other dorsalgia[ICD10: M54.89] Marcia Ponce MD, [facility] CPT-4: 48671 04/05/2019 55351 EST. PATIENT, LEVEL III Diagnosis: Acute laryngopharyngitis[ICD10: J06.0] Diagnosis: Other allergic rhinitis[ICD10: J30.89] Alison Ponce MD, [facility] CPT-4: 03060 02/07/2019 ([id number]) [id number] EST. P ATIENT, LEVEL IV Diagnosis: Gastro-esophageal reflux disease without esophagitis[ICD10: K21.9] Diagnosis: Other hypersomnia[ICD10: G47.19] Diagnosis: Snoring[ICD10: R06.83] Diagnosis: Obstructive sleep apnea (adult) (pediatric)[ICD10: G47.33] Marcia Ponce MD, [facility] CPT-4: 82005 01/03/2019 OFFICE VISIT, NEW - LEVEL 4 Diagnosis: Gastro-esophageal reflux disease without esophagitis[ICD10: K21.9] Diagnosis: Other allergic rhinitis[ICD10: J30.89] Diagnosis: Generalized anxiety disorder[ICD10: F41.1] Diagnosis: Major depressive disorder, recurrent, mild[ICD10: F33.0] Kenzie Ponce MD, [facility] CPT-4: 38200 11/27/2018 Plan of Care Planned Activity Notes C odes Status Date Visit Plan: URI - Pt advised to inc rease fluids, vitamin C. Discussed natural and expected course of this diagnosis and need to alert me if symptoms do not follow expected course, or if any worse. RX sent to patient's pharmacy. Allergies - chronic - recommended pt to use allergy medication as prescribed. Pt has been counseled as to the appropriate use of the medication. Pt to call if allergy symptoms are not controlled with the medication. If using nasal spray, instructions as follows: Nasal spray- use twice daily, one spray per nostril twice daily, after 30 minutes, rinse out nose with saline spray.. Use opposite hand per nostril to spray in the nasal steroid allergy spray. 04/16/2019 Appointment: Alison Rosen WPtel: [phone] [facility] (30 min) Complex 04/16/2019 Patient Education: Patient Medication Summary Completed 04/16/2019 Visit Plan: Chronic back pain with scolioisis - recommended a referral to [facility] for eval/treatment other modalities as he would recommend. Esophageal Reflux - the patient has been counseled against excessive intake of caffeine, spicy foods, peppermint, and cinnamon - all of which can exacerbate esophageal reflux. The patient is to take medications as prescribed and call the office if the symptoms are not improving. 04/05/2019 Appointment: Marcia Ponce WPtel: [address] (15 min) Moderate 04/05/2019 Patient Education: Patient Medication Summary Completed 04/05/2019 Visit Plan: URI - Pt advised to inc rease fluids, vitamin C. Discussed natural and expected course of this diagnosis and need to alert me if symptoms do not follow expected course, or if any worse. RX sent to patient's pharmacy. Allergies - chronic - recommended pt to use allergy medication as prescribed. Pt has been counseled as to the appropriate use of the medication. Pt to call if allergy symptoms are not controlled with the medication. If using nasal spray, instructions as follows: Nasal spray- use twice daily, one spray per nostril twice daily, after 30 minutes, rinse out nose with saline spray.. Use opposite hand per nostril to spray in the nasal steroid allergy spray. 02/07/2019 Appointment: Alison Rosen WPtel: [id number] (15 min) Moderate 02/07/2019 Patient Education: Patient Medication Summary Completed 02/07/2019 Visit Plan: Esophageal Reflux - the patient has been counseled against excessive intake of caffeine, spicy foods, peppermint, and cinnamon - all of which can exacerbate esophageal reflux. The patient is to take medications as prescribed and call the office if the symptoms are not improving. increase the pepcid to one pill twice daily. If this does not help her symptoms, we will get her in with a surgeon for a EGD. Fatigue/daytime hypersomnolence, sleep disruption with witnessed apnea episodes and snoring - I have performed a Epiworth sleepiness scale and she was 15 on the scale - Recommendation is for sleep study to be performed - pt to go to [facility] for outpatient sleep lab sleep study. Hx of Lymes disease - supportive care only at this time. 01/03/2019 Appointment: [phone] (15 min) Moderate 01/03/2019 Patient Education: Patient Medication Summary Completed 01/03/2019 Visit Plan: Esophageal Reflux - the patient has been counseled against excessive intake of caffeine, spicy foods, peppermint, and cinnamon - all of which can exacerbate esophageal reflux. The patient is to take medications as prescribed and call the office if the symptoms are not improving. Allergies - chronic - recommended pt to use allergy medication as prescribed. Pt has been counseled as to the appropriate use of the medication. Pt to call if allergy symptoms are not controlled with the medication. If using nasal spray, instructions as follows: Nasal spray- use twice daily, one spray per nostril twice daily, after 30 minutes, rinse out nose with saline spray.. Use opposite hand per nostril to spray in the nasal steroid allergy spray. Chronic Depression and anxiety -fibromyalgia-not well controlled-stop lexapro and start cymbalta - follow up in 1 month Back and knee pain -consider starting mobic -check labs first 11/27/2018 Appointment: Kenzie Cox [facility]el[phone] [place] [address] New Patient 11/27/2018 Patient Education: Patient Medication Summary Completed 11/27/2018 Patient Education: Depression Completed 11/27/2018 Care Plan: Comp Metabolic Pending 11/27/2018 Instructions Comment Esophageal Reflux - the patient has been counseled against excessive intake of caffeine, spicy foods, peppermint, and cinnamon - all of which can exacerbate esophageal reflux. The patient is to take medications as prescribed and call the office if the symptoms are not improving. increase the pepcid to one pill twice daily. tumeric - can help with inflammation vitamin b12 liquid or dissolving tablets - 2000mcg daily . Esophageal Reflux - the patient has be en counseled against excessive intake of caffeine, spicy foods, peppermint, and cinnamon - all of which can exacerbate esophageal reflux. The patient is to take medications as prescribed and call the office if the symptoms are not improving. increase the pepcid to one pill twice daily. If this does not help her symptoms, we will get her in with a surgeon for a EGD. Fatigue/daytime hypersomnolence, sleep disruption with witnessed apnea episodes and snoring - I have performed a Epiworth sleepiness scale and she was 15 on the scale - Recommendation is for sleep study to be performed - pt to go to [facility] for outpatient sleep lab sleep study. Hx of Lymes disease - supportive care only at this time. KENALOG INJECTION TO DAY CONTINUE MANOJ NASAL SALINE SPRAY INCREASE FLONASE TO TWICE DAILY ZANTAC (RANITIDINE) OR PEPCID (FAMOTIDINE) TWICE DAILY FASTING LABS -MAG LABS -FAST FOR 8-12 HOURS IF KIDNEY FUNCTION IS NORMAL, WE CAN TRY MOBIC (MELOXICAM) FOR YOUR ARTHRITIS PAIN STOP LEXAPRO AND START CYMBALTA 60MG DAILY . Esophageal Reflux - the patient has be en counseled against excessive intake of caffeine, spicy foods, peppermint, and cinnamon - all of which can exacerbate esophageal reflux. The patient is to take medications as prescribed and call the office if the symptoms are not improving. Allergies - chronic - recommended pt to use allergy medication as prescribed. Pt has been counseled as to the appropriate use of the medication. Pt to call if allergy symptoms are not controlled with the medication. If using nasal spray, instructions as follows: Nasal spray- use twice daily, one spray per nostril twice daily, after 30 minutes, rinse out nose with saline spray.. Use opposite hand per nostril to spray in the nasal steroid allergy spray. Chronic Depression and anxiety -fibromyalgia-not well controlled-stop lexapro and start cymbalta -follow up in 1 month Back and knee pain -consider starting mobic -check labs first . URI - Pt advised t o increase fluids, vitamin C. Discussed natural and expected course of this diagnosis and need to alert me if symptoms do not follow expected course, or if any worse. RX sent to patient's pharmacy. Allergies - chronic - recommended pt to use allergy medication as prescribed. Pt has been counseled as to the appropriate use of the medication. Pt to call if allergy symptoms are not controlled with the medication. If using nasal spray, instructions as follows: Nasal spray- use twice daily, one spray per nostril twice daily, after 30 minutes, rinse out nose with saline spray.. Use opposite hand per nostril to spray in the nasal steroid allergy spray. . Chronic back pain with scolioisis - recommended a referral to [facility] for eval/treatment other modalities as he would recommend. Esophageal Reflux - the patient has been counseled against excessive intake of caffeine, spicy foods, peppermint, and cinnamon - all of which can exacerbate esophageal reflux. The patient is to take medications as prescribed and call the office if the symptoms are not improving. . URI - Pt advised t o increase fluids, vitamin C. Discussed natural and expected course of this diagnosis and need to alert me if symptoms do not follow expected course, or if any worse. RX sent to patient's pharmacy. Allergies - chronic - recommended pt to use allergy medication as prescribed. Pt has been counseled as to the appropriate use of the medication. Pt to call if allergy symptoms are not controlled with the medication. If using nasal spray, instructions as follows: Nasal spray- use twice daily, one spray per nostril twice daily, after 30 minutes, rinse out nose with saline spray.. Use opposite hand per nostril to spray in the nasal steroid allergy spray.
--- OUTSIDE RECORDS SUMMARY | 2020-01-22 07:04 | XMS REPORT | Summary of Care ---
Author Author [facility] er Organization [facility] er Address Unknown Phone Unavailable Encounter [facility] [id number] Date(s): 03/24/17 - 03/24/17 [facility] [address] [address] Final: Macular cyst, hole, or [...]
--- OUTSIDE RECORDS SUMMARY | 2020-01-22 07:05 | XMS REPORT | CCD ---
Author Author Flavia Cox Organization Marcia Ponce MD, [facility] Address [address] [place] [address] Phone Care Team Providers Care Inhalation Therapy Teacher Name Role Phone PP Unavailable CCM Unavailable Summary Purpose Interface Exchange Insurance Providers Payer name Policy type / Coverage type Covered green party ID Effective Begin Date Effective End Date WPS Medicare Part B Medicare Part B [id number] Unknown Unknown Cign[employer] Medicare Part B No [...] AND FIBROMYALGIA 11/27/[address]: 712296471 Never smoker 11/27/2018 Alcohol history Unknown occasionally [...] Instructions amoxicillin 500 mg c apsule RxNorm: 444180 1 Capsule(s) PO TID 04/16/2019 04/25/2019 Active prednisone 20 mg tablet RxNorm: 592320 2 Tablet(s) PO daily 04/16/2019 04/20/2019 Active pantoprazole 40 mg t ablet,delayed release RxNorm: 240108 1 Tablet(s) PO QPM 04/05/2019 03/29/2020 Ac tive Zithromax Z-Carlos 250 mg tablet RxNorm: 656806 Tablet(s) PO UD 02/07/2019 No Stop Date Active Kenalog 40 mg/mL denise pension for injection RxNorm: 2667642 1 Milliliter(s) Inj 02/07/2019 02/07/2019 In active lisinopril 10 mg tablet RxNorm: 887400 1 Tablet(s) PO daily 01/16/2019 07/14/2019 Active meloxicam 7.5 mg tablet RxNorm: 872032 1 Tablet(s) PO daily . May increase to t wice daily if needed 12/05/2018 12/04/2018 Inactive meloxicam 7.5 mg tablet RxNorm: 319188 1 Tablet(s) PO daily . May increase to t wice daily if needed 12/05/2018 03/04/2019 Inactive Cymbalta 60 mg capsu le,delayed release RxNorm: 756482 1 Capsule(s) PO daily 11/27/2018 05/25/2019 Ac tive Lexapro 20 mg tablet RxNorm: 1 Tablet(s) PO daily 11/27/2018 11/27/2018 Inactive Kenalog 40 mg/mL denise pension for injection RxNorm: 5173936 Milliliter(s) Inj 11/27/2018 11/27/2018 In active lisinopril 10 mg tablet RxNorm: 147939 1 Tablet(s) PO daily No Start Date 01/15/2019 Inactive Medication Administered Medication Codes Instruc tions Start Date Status Kenalog 40 mg/mL suspension for injection RxNorm: 4654170 1Milliliter 02/07/2019 N o longer Active Kenalog 40 mg/mL suspension for injection RxNorm: 4288076 Milliliter 11/27/2018 No longer Active Immunizations No [...] 29.6 pg 12/04/2018 Cbc With Differential Ord2 [place]% 7.7 % 12/04/2018 Cbc With Differential Ord2 [...] 2.99 K/ul 12/04/2018 Cbc With Differential Ord2 [place] ABS# 0.6 K/ul 12/04/2018 Cbc With Differential Ord2 Eos ABS# 0.1 K/ul 12/04/2018 Cbc With Differential Ord2 Baso ABS# 0.0 K/ul 12/04/2018 Lipid Ord30 CHOL 228 mg/dL 12/04/2018 Lipid Ord30 HDL 71.0 mg/dl 12/04/2018 Lipid Ord30 TRIG 184 mg/dL 12/04/2018 Lipid Ord30 LDL 120 mg/dL 12/04/2018 Lipid Ord30 C/HDL 3.2 Ratio 12/04/2018 Tsh Ord6 TSH (3rd IS) 1.77 uIU/mL 12/04/2018 Comp Metabolic Llm648 NA 137 mEq/L 12/04/2018 Comp Metabolic Nka964 K 5.0 mEq/L 12/04/2018 Comp Metabolic Zbi877 CL 101 mEq/L 12/04/2018 Comp Metabolic Gql528 CO2 31.0 mEq/L 12/04/2018 Comp Metabolic Kpu542 AN ION GAP 10 12/04/2018 Comp Metabolic Xht756 GL UCOSE 95 mg/dL 12/04/2018 Comp Metabolic Yfs723 Cr eat 0.7 mg/dL 12/04/2018 Comp Metabolic Ana620 eG FR 94 ml/min/1.73m2 12/04 Comp Metabolic Sew840 BUN 26 mg/dL 12/04/2018 Comp Metabolic Xix986 B/ C Ratio 38.8 Ratio 12/04/2018 Comp Metabolic Dof062 CA LCIUM 10.2 mg/dL 12/04/2018 Comp Metabolic Kly830 AL K PHOS 83 U/L 12/04/2018 Comp Metabolic Zvw659 T(SGOT) 13 U/L 12/04/2018 Comp Metabolic Njk393 AL T(SGPT) 12 U/L 12/04/2018 Comp Metabolic Tfd212 BI LI T 0.5 mg/dL 12/04/2018 Comp Metabolic Min511 AL BUMIN 4.5 g/dL 12/04/2018 Comp Metabolic Arp374 TP RO 7.3 g/dL 12/04/2018 Comp Metabolic Qln118 GL OB 2.8 g/dL 12/04/2018 Comp Metabolic Bmv350 A/ G Ratio 1.6 Ratio 12/04/2018 Comp Metabolic Mlv752 Os mo 278 mOsmo 12/04/2018 Review of [...] CPT-4: J3301 02/07/2019 THER/PROPH/DIAG INJ SC/IM CPT-4: 79896 02/07/2019 THER/PROPH/DIAG INJ SC/IM CPT-4: 17414 11/27/2018 TRIAMCINOLONE ACET I [place] NOS CPT-4: J3301 11/27/2018 Vital Signs Date Vital 04/16/2019 Blood Pressure 1: 136/80 Code: 8480-6 BMI: 29.6 Code: 55172-3 Heart Rate 1: 100 bpm Height: 5'2" SpO2: 98% Temperature: 36.6 (C ) / 97.9 (F) Weight: 159 lbs 04/05/2019 Blood Pressure 1: 142/80 Code: 8480-6 BMI: 29.2 Code: 53250-9 Heart Rate 1: 103 bpm Height: 5'2" SpO2: 96% Weight: 157 lbs 02/07/2019 Blood Pressure 1: 134/78 Code: 8480-6 Heart Rate 1: 101 bpm Height: 5'2" SpO2: 98% 01/03/2019 Blood Pressure 1: 130/48 Code: 8480-6 BMI: 30.7 Code: 37544-9 Heart Rate 1: 103 bpm Height: 5'2" SpO2: 98% Weight: 165 lbs 11/27/2018 Blood Pressure 1: 136/80 Code: 8480-6 BMI: 30.9 Code: 97214-0 Heart Rate 1: 88 bpm Height: 5'2" [...] Encounters Encounter Performer Loca tion Codes Date 80638 EST. PATIENT, LEVEL III Diagnosis: Acute laryngopharyngitis[ICD10: J06.0] Diagnosis: Other allergic rhinitis[ICD10: J30.89] Diagnosis: Cough[ICD10: R05] Alison Ponce MD, [facility] CPT-4: 53164 04/16/2019 ([id number] 24696 EST. P ATIENT, LEVEL IV Diagnosis: Gastro-esophageal reflux disease without esophagitis[ICD10: K21.9] Diagnosis: Other idiopathic scoliosis, thoracic region[ICD10: M41.24] Diagnosis: Other dorsalgia[ICD10: M54.89] Marcia Ponce MD, [facility] CPT-4: 92125 04/05/2019 10966 EST. PATIENT, LEVEL III Diagnosis: Acute laryngopharyngitis[ICD10: J06.0] Diagnosis: Other allergic rhinitis[ICD10: J30.89] Alison Ponce MD, [facility] CPT-4: 13754 02/07/2019 ([id number]) 76725 EST. P ATIENT, LEVEL IV Diagnosis: Gastro-esophageal reflux disease without esophagitis[ICD10: K21.9] Diagnosis: Other hypersomnia[ICD10: G47.19] Diagnosis: Snoring[ICD10: R06.83] Diagnosis: Obstructive sleep apnea (adult) (pediatric)[ICD10: G47.33] Marcia Ponce MD, [facility] CPT-4: 06054 01/03/2019 OFFICE VISIT, NEW - LEVEL 4 Diagnosis: Gastro-esophageal reflux disease without esophagitis[ICD10: K21.9] Diagnosis: Other allergic rhinitis[ICD10: J30.89] Diagnosis: Generalized anxiety disorder[ICD10: F41.1] Diagnosis: Major depressive disorder, recurrent, mild[ICD10: F33.0] Kenzie Ponce MD, [facility] CPT-4: 14072 11/27/2018 Plan of Care Planned Activity Notes [...] in the nasal steroid allergy spray. 04/16/2019 Patient Education: Patient Medication Summary Completed [...] not improving. 04/05/2019 Appointment: Marcia Ponce WPtel: [address] [place] [address] (15 min) Moderate 04/05/2019 Patient Education: Patient [...] allergy spray. 02/07/2019 Appointment: Alison Rosen WPtel: [address] [place] [address] (15 min) Moderate 02/07/2019 Patient Education: Patient [...] be performed - pt to go to [facility] for outpatient sleep lab sleep study. Hx of Lymes disease - supportive care only at this time. 01/03/2019 Appointment: [place] [phone] ([facility] min) Moderate 01/03/2019 Patient Education: Patient [...] labs first 11/27/2018 Appointment: Kenzie Cox WPtel: [facility] New Patient 11/27/2018 Patient Education: Patient Medication [...] performed - pt to go to [facility] for outpatient sleep lab sleep study. Hx [...]
--- OUTSIDE RECORDS SUMMARY | 2020-01-22 07:05 | XMS REPORT | CCD ---
Author Author Flavia Cox Organization Marcia Ponce MD, [facility] Address [address] [place] [address] Phone Care Team Providers Care Client Services Manager Name Role Phone PP Unavailable CCM Unavailable Summary Purpose Interface Exchange Insurance Providers Payer name Policy type / Coverage type Covered green party ID Effective Begin Date Effective End Date WPS Medicare Part B Medicare Part B [id number] Unknown Unknown Cigna Medicare Part B No [...] AND FIBROMYALGIA 11/27/[address]: 901124545 Never smoker 11/27/2018 Alcohol history Unknown occasionally drinks alcohol 11/27/2018 Allergies, Adverse Reactions, Alerts Substance Reaction Codes Entered Date Inactivated Date Status * NO KNOWN DRUG DINA RGIES Unknown 11/27/2018 No Inactive Date Active Past Medical History Illness Codes Condition Status Onset Date Resolved Date Acute laryngopharyng itis ICD-9: 465.0 ICD-10: J06.0 Active 02/07/2019 Unknown Other allergic rhinitis ICD-9: 477.8 ICD-10: J30.89 Active 11/27/2018 Unknown Gastro-esophageal re flux disease without esophagitis ICD-9: 530.81 ICD-10: K21.9 Active 11/27/2018 Unknown Obstructive sleep ap heber (adult) (pediatric) [...] itis ICD-9: 465.0 ICD-10: J06.0 02/07/2019 Active Other allergic rhinitis ICD-9: 477.8 ICD-10: J30.89 11/27/2018 Active Gastro-esophageal re flux disease without esophagitis ICD-9: 530.81 ICD-10: K21.9 11/27/2018 Active Obstructive sleep ap heber (adult) (pediatric) ICD-9: 327.23 ICD-10: G47.33 01/03/2019 Active Other hypersomnia ICD-9: 780.54 ICD-10: G47.19 01/03/2019 Active Snoring ICD-9: 786.09 ICD-10: R06.83 01/03/2019 Active Generalized anxiety disorder ICD-9: 300.02 ICD-10: F41.1 11/27/2018 Active Major depressive dis order, recurrent, mild ICD-9: 296.31 ICD-10: F33.0 11/27/2018 Active Medications Medication Codes Instruc tions Start Date Stop Date Sta tus Fill Instructions Zithromax Z-Carlos 250 mg tablet RxNorm: 738955 Tablet(s) PO UD 02/07/2019 No Stop Date Active Kenalog 40 mg/mL denise pension for injection RxNorm: 0040053 1 Milliliter(s) Inj 02/07/2019 02/07/2019 In active lisinopril 10 mg tablet RxNorm: 959788 1 Tablet(s) PO daily 01/16/2019 07/14/2019 Active meloxicam 7.5 mg tablet RxNorm: 183754 1 Tablet(s) PO daily . May increase to t wice daily if needed 12/05/2018 03/04/2019 Active meloxicam 7.5 mg tablet RxNorm: 050889 1 Tablet(s) PO daily . May increase to t wice daily if needed 12/05/2018 12/04/2018 Inactive Cymbalta 60 mg capsu le,delayed release RxNorm: 986910 1 Capsule(s) PO daily 11/27/2018 05/25/2019 Ac tive Lexapro 20 mg tablet RxNorm: 1 Tablet(s) PO daily 11/27/2018 11/27/2018 Inactive Kenalog 40 mg/mL denise pension for injection RxNorm: 0861702 Milliliter(s) Inj 11/27/2018 11/27/2018 In active lisinopril 10 mg tablet RxNorm: 212690 1 Tablet(s) PO daily No Start Date 01/15/2019 Inactive Medication Administered Medication Codes Instruc tions Start Date Status Kenalog 40 mg/mL suspension for injection RxNorm: 5255040 1Milliliter 02/07/2019 N o longer Active Kenalog 40 mg/mL suspension for injection RxNorm: 4697903 Milliliter 11/27/2018 No longer Active Immunizations No Immunization data Assessments Condition Codes Effectiv e Dates Other allergic rhinitis ICD-10: J30. 89 ICD-9: 477.8 02/07/2019 Acute laryngopharyngitis ICD-10: J06 .0 ICD-9: 465.0 02/07/2019 Gastro-esophageal reflux disease without esophagitis ICD-10: K21.9 ICD-9: 530.81 01/03/2019 Obstructive sleep apnea (adult) (pediatric) ICD-10: G47.33 ICD-9: 327.23 01/03/2019 Snoring ICD-10: R06.83 ICD-9: 786.09 01/03/2019 Other hypersomnia ICD-10: G47.19 ICD-9: 780.54 01/03/2019 Major depressive disorder, recurrent, mild ICD-10: F33.0 ICD-9: 296.31 11/27/2018 Generalized anxiety disorder ICD-10: F41.1 ICD-9: 300.02 11/27/2018 Reason For Visit Reason For Visit Effective Dates Notes sore throat 02/07/2019 fatigue 01/03/2019 back pain [...] 29.6 pg 12/04/2018 Cbc With Differential Ord2 [place]% 7.7 % 12/04/2018 Cbc With Differential Ord2 [...] 2.99 K/ul 12/04/2018 Cbc With Differential Ord2 [place] ABS# 0.6 K/ul 12/04/2018 Cbc With Differential Ord2 Eos ABS# 0.1 K/ul 12/04/2018 Cbc With Differential Ord2 Baso ABS# 0.0 K/ul 12/04/2018 Lipid Ord30 CHOL 228 mg/dL 12/04/2018 Lipid Ord30 HDL 71.0 mg/dl 12/04/2018 Lipid Ord30 TRIG 184 mg/dL 12/04/2018 Lipid Ord30 LDL 120 mg/dL 12/04/2018 Lipid Ord30 C/HDL 3.2 Ratio 12/04/2018 Tsh Ord6 TSH (3rd IS) 1.77 uIU/mL 12/04/2018 Comp Metabolic Zxl692 NA 137 mEq/L 12/04/2018 Comp Metabolic Tdh622 K 5.0 mEq/L 12/04/2018 Comp Metabolic Drr505 CL 101 mEq/L 12/04/2018 Comp Metabolic Dsc145 CO2 31.0 mEq/L 12/04/2018 Comp Metabolic Hss472 AN ION GAP 10 12/04/2018 Comp Metabolic Bfm786 GL UCOSE 95 mg/dL 12/04/2018 Comp Metabolic Jwv488 Cr eat 0.7 mg/dL 12/04/2018 Comp Metabolic Bfn864 eG FR 94 ml/min/1.73m2 12/04 Comp Metabolic Gse502 BUN 26 mg/dL 12/04/2018 Comp Metabolic Kzu694 B/ C Ratio 38.8 Ratio 12/04/2018 Comp Metabolic Frf665 CA LCIUM 10.2 mg/dL 12/04/2018 Comp Metabolic Bdj991 AL K PHOS 83 U/L 12/04/2018 Comp Metabolic Kty552 T(SGOT) 13 U/L 12/04/2018 Comp Metabolic Obu018 AL T(SGPT) 12 U/L 12/04/2018 Comp Metabolic Grs490 BI LI T 0.5 mg/dL 12/04/2018 Comp Metabolic Mqt513 AL BUMIN 4.5 g/dL 12/04/2018 Comp Metabolic Ogf844 TP RO 7.3 g/dL 12/04/2018 Comp Metabolic Glh598 GL OB 2.8 g/dL 12/04/2018 Comp Metabolic Nbl215 A/ G Ratio 1.6 Ratio 12/04/2018 Comp Metabolic Epb602 Os mo 278 mOsmo 12/04/2018 Review of Systems System Result Effective Dates Constitutional recent illness 02/07/2019 Constitutional chills Constitutional [...] CPT-4: J3301 02/07/2019 THER/PROPH/DIAG INJ SC/IM CPT-4: 59784 02/07/2019 THER/PROPH/DIAG INJ SC/IM CPT-4: 05354 11/27/2018 TRIAMCINOLONE ACET I [place] NOS CPT-4: J3301 11/27/2018 Vital Signs Date Vital 02/07/2019 Blood Pressure 1: 134/78 Code: 8480-6 Heart Rate 1: 101 bpm Height: 5'2" SpO2: 98% 01/03/2019 Blood Pressure 1: 130/48 Code: 8480-6 BMI: 30.7 Code: 65383-2 Heart Rate 1: 103 bpm Height: 5'2" SpO2: 98% Weight: 165 lbs 11/27/2018 Blood Pressure 1: 136/80 Code: 8480-6 BMI: 30.9 Code: 87711-5 Heart Rate 1: 88 bpm Height: 5'2" SpO2: 96% Weight: 166 lbs Functional Status No Functional Status data History of Present Illness Symptom Name Status Resu lt Effective Date Notes Quality acute 02/07/2019 None Onset and Resolution [...] Encounters Encounter Performer Loca tion Codes Date EST. PATIENT, LEVEL III Diagnosis: Acute laryngopharyngitis[ICD10: J06.0] Diagnosis: Other allergic rhinitis[ICD10: J30.89] Alison Ponce MD, [facility] CPT-4: 89421 02/07/2019 ([id number] EST. P ATIENT, LEVEL IV Diagnosis: Gastro-esophageal reflux disease without esophagitis[ICD10: K21.9] Diagnosis: Other hypersomnia[ICD10: G47.19] Diagnosis: Snoring[ICD10: R06.83] Diagnosis: Obstructive sleep apnea (adult) (pediatric)[ICD10: G47.33] Marcia Ponce MD, [facility] CPT-4: 95110 01/03/2019 OFFICE VISIT, NEW - LEVEL 4 Diagnosis: Gastro-esophageal reflux disease without esophagitis[ICD10: K21.9] Diagnosis: Other allergic rhinitis[ICD10: J30.89] Diagnosis: Generalized anxiety disorder[ICD10: F41.1] Diagnosis: Major depressive disorder, recurrent, mild[ICD10: F33.0] Kenzie Ponce MD, [facility] CPT-4: 57884 11/27/2018 Plan of Care Planned Activity Notes [...] allergy spray. 02/07/2019 Appointment: Alison Rosen WPtel: [phone] [facility] (15 min) Moderate 02/07/2019 Patient Education: Patient [...] be performed - pt to go to [facility] for outpatient sleep lab sleep study. Hx of Lymes disease - supportive care only at this time. 01/03/2019 App[facility]ment[phone] ([facility] min) Moderate 01/03/2019 Patient Education: [...] labs first 11/27/2018 [phone] New Patient 11/27/2018 Patient Education: Patient Medication [...] performed - pt to go to [facility] for outpatient sleep lab sleep study. Hx [...]
--- OUTSIDE RECORDS SUMMARY | 2020-01-22 07:05 | XMS REPORT | CCD ---
Author Author Flavia Cox Organization Marcia Ponce MD, [facility] Address [address] [place] [address] Phone Care Team Providers Care Director Transportation Name Role Phone PP Unavailable CCM Unavailable Summary Purpose Interface Exchange Insurance Providers Payer name Policy type / Coverage type Covered libertarian ID Effective Begin Date Effective End Date WPS Medicare Part B Medicare Part B [id number] Unknown Unknown Cigna Medicare Part B No [...] AND FIBROMYALGIA 11/27/[address]: 107853467 Never smoker 11/27/2018 Alcohol history Unknown occasionally drinks alcohol 11/27/2018 Allergies, Adverse Reactions, Alerts Substance Reaction Codes Entered Date Inactivated Date Status * NO KNOWN DRUG DINA RGIES Unknown 11/27/2018 No Inactive Date Active Past Medical History Illness Codes Condition Status Onset Date Resolved Date Gastro-esophageal re flux disease without esophagitis ICD-9: 530.81 ICD-10: K21.9 Active 11/27/2018 Unknown Other dorsalgia ICD-9: 724.5 ICD-10: M54.89 Active 04/05/2019 Unknown Other idiopathic sco liosis, thoracic region ICD-9: 737.30 ICD-10: M41.24 Active 04/05/2019 Unknown Acute laryngopharyng itis ICD-9: 465.0 ICD-10: J06.0 Active 02/07/2019 Unknown Other allergic rhinitis ICD-9: 477.8 ICD-10: J30.89 Active 11/27/2018 Unknown Obstructive sleep ap heber [...] Condition Codes Effectiv e Dates Condition Status Gastro-esophageal re flux disease without esophagitis ICD-9: 530.81 ICD-10: K21.9 11/27/2018 Active Other dorsalgia ICD-9: 724.5 ICD-10: M54.89 04/05/2019 Active Other idiopathic sco liosis, thoracic region ICD-9: 737.30 ICD-10: M41.24 04/05/2019 Active Acute laryngopharyng itis ICD-9: 465.0 ICD-10: J06.0 02/07/2019 Active Other allergic rhinitis ICD-9: 477.8 ICD-10: J30.89 11/27/2018 Active Obstructive sleep ap heber (adult) (pediatric) ICD-9: 327.23 ICD-10: G47.33 01/03/2019 Active Other hypersomnia ICD-9: 780.54 ICD-10: G47.19 01/03/2019 Active Snoring ICD-9: 786.09 ICD-10: R06.83 01/03/2019 Active Generalized anxiety disorder ICD-9: 300.02 ICD-10: F41.1 11/27/2018 Active Major depressive dis order, recurrent, mild ICD-9: 296.31 ICD-10: F33.0 11/27/2018 Active Medications Medication Codes Instruc tions Start Date Stop Date Sta tus Fill Instructions pantoprazole 40 mg t ablet,delayed release RxNorm: 926995 1 Tablet(s) PO QPM 04/05/2019 03/29/2020 Ac tive Zithromax Z-Carlos 250 mg tablet RxNorm: 999240 Tablet(s) PO UD 02/07/2019 No Stop Date Active Kenalog 40 mg/mL denise pension for injection RxNorm: 3727694 1 Milliliter(s) Inj 02/07/2019 02/07/2019 In active lisinopril 10 mg tablet RxNorm: 388665 1 Tablet(s) PO daily 01/16/2019 07/14/2019 Active meloxicam 7.5 mg tablet RxNorm: 232843 1 Tablet(s) PO daily . May increase to t wice daily if needed 12/05/2018 12/04/2018 Inactive meloxicam 7.5 mg tablet RxNorm: 118400 1 Tablet(s) PO daily . May increase to t wice daily if needed 12/05/2018 03/04/2019 Inactive Cymbalta 60 mg capsu le,delayed release RxNorm: 064528 1 Capsule(s) PO daily 11/27/2018 05/25/2019 Ac tive Lexapro 20 mg tablet RxNorm: 1 Tablet(s) PO daily 11/27/2018 11/27/2018 Inactive Kenalog 40 mg/mL denise pension for injection RxNorm: 4758691 Milliliter(s) Inj 11/27/2018 11/27/2018 In active lisinopril 10 mg tablet RxNorm: 079848 1 Tablet(s) PO daily No Start Date 01/15/2019 Inactive Medication Administered Medication Codes Instruc tions Start Date Status Kenalog 40 mg/mL suspension for injection RxNorm: 4073822 1Milliliter 02/07/2019 N o longer Active Kenalog 40 mg/mL suspension for injection RxNorm: 1257731 Milliliter 11/27/2018 No longer Active Immunizations No Immunization data Assessments Condition Codes Effectiv e Dates Other dorsalgia ICD-10: M54.89 ICD-9: 724.5 04/05/2019 Gastro-esophageal reflux disease without esophagitis ICD-10: K21.9 ICD-9: 530.81 04/05/2019 Other idiopathic scoliosis, thoracic region ICD-10: M41.24 ICD-9: 737.30 04/05/2019 Other allergic rhinitis ICD-10: J30. 89 ICD-9: 477.8 02/07/2019 Acute laryngopharyngitis ICD-10: J06 .0 ICD-9: 465.0 02/07/2019 Obstructive sleep apnea (adult) (pediatric) ICD-10: G47.33 ICD-9: 327.23 01/03/2019 Snoring ICD-10: R06.83 ICD-9: 786.09 01/03/2019 Other hypersomnia ICD-10: G47.19 ICD-9: 780.54 01/03/2019 Major depressive disorder, recurrent, mild ICD-10: F33.0 ICD-9: 296.31 11/27/2018 Generalized anxiety disorder ICD-10: F41.1 ICD-9: 300.02 11/27/2018 Reason For Visit Reason For Visit Effective Dates Notes back pain 04/05/2019 sore throat 02/07/2019 fatigue [...] 29.6 pg 12/04/2018 Cbc With Differential Ord2 [place]% 7.7 % 12/04/2018 Cbc With Differential Ord2 [...] 2.99 K/ul 12/04/2018 Cbc With Differential Ord2 [place] ABS# 0.6 K/ul 12/04/2018 Cbc With Differential Ord2 Eos ABS# 0.1 K/ul 12/04/2018 Cbc With Differential Ord2 Baso ABS# 0.0 K/ul 12/04/2018 Lipid Ord30 CHOL 228 mg/dL 12/04/2018 Lipid Ord30 HDL 71.0 mg/dl 12/04/2018 Lipid Ord30 TRIG 184 mg/dL 12/04/2018 Lipid Ord30 LDL 120 mg/dL 12/04/2018 Lipid Ord30 C/HDL 3.2 Ratio 12/04/2018 Tsh Ord6 TSH (3rd IS) 1.77 uIU/mL 12/04/2018 Comp Metabolic Mph046 NA 137 mEq/L 12/04/2018 Comp Metabolic Wqm982 K 5.0 mEq/L 12/04/2018 Comp Metabolic Xjo888 CL 101 mEq/L 12/04/2018 Comp Metabolic Xrm827 CO2 31.0 mEq/L 12/04/2018 Comp Metabolic Giz891 AN ION GAP 10 12/04/2018 Comp Metabolic Svy283 GL UCOSE 95 mg/dL 12/04/2018 Comp Metabolic Nkn098 Cr eat 0.7 mg/dL 12/04/2018 Comp Metabolic Kor325 eG FR 94 ml/min/1.73m2 12/04 Comp Metabolic Sbe975 BUN 26 mg/dL 12/04/2018 Comp Metabolic Sbw500 B/ C Ratio 38.8 Ratio 12/04/2018 Comp Metabolic Dxp846 CA LCIUM 10.2 mg/dL 12/04/2018 Comp Metabolic Ltb036 AL K PHOS 83 U/L 12/04/2018 Comp Metabolic Jcj281 T(SGOT) 13 U/L 12/04/2018 Comp Metabolic Xvq668 AL T(SGPT) 12 U/L 12/04/2018 Comp Metabolic Kma929 BI LI T 0.5 mg/dL 12/04/2018 Comp Metabolic Com867 AL BUMIN 4.5 g/dL 12/04/2018 Comp Metabolic Pcf834 TP RO 7.3 g/dL 12/04/2018 Comp Metabolic Nbf487 GL OB 2.8 g/dL 12/04/2018 Comp Metabolic Pvz992 A/ G Ratio 1.6 Ratio 12/04/2018 Comp Metabolic Okj115 Os mo 278 mOsmo 12/04/2018 Review of Systems System Result Effective Dates Constitutional recent illness 04/05/2019 Constitutional No anorexia [...] Result Effective Dates Notes Full Exam - General 1994 Constitutional general [...] CPT-4: J3301 02/07/2019 THER/PROPH/DIAG INJ SC/IM CPT-4: 23388 02/07/2019 THER/PROPH/DIAG INJ SC/IM CPT-4: 30878 11/27/2018 TRIAMCINOLONE ACET I [place] NOS CPT-4: J3301 11/27/2018 Vital Signs Date Vital 04/05/2019 Blood Pressure 1: 142/80 Code: 8480-6 BMI: 29.2 Code: 27787-9 Heart Rate 1: 103 bpm Height: 5'2" SpO2: 96% Weight: 157 lbs 02/07/2019 Blood Pressure 1: 134/78 Code: 8480-6 Heart Rate 1: 101 bpm Height: 5'2" SpO2: 98% 01/03/2019 Blood Pressure 1: 130/48 Code: 8480-6 BMI: 30.7 Code: 02178-2 Heart Rate 1: 103 bpm Height: 5'2" SpO2: 98% Weight: 165 lbs 11/27/2018 Blood Pressure 1: 136/80 Code: 8480-6 BMI: 30.9 Code: 34449-6 Heart Rate 1: 88 bpm Height: 5'2" SpO2: 96% Weight: 166 lbs Functional Status No Functional Status data History of Present Illness Symptom Name Status Resu lt Effective Date Notes Location Cervical spine 04/05/2019 None Location lumbar [...] Encounters Encounter Performer Loca tion Codes Date ([id number]) [id number] EST. P ATIENT, LEVEL IV Diagnosis: Gastro-esophageal reflux disease without esophagitis[ICD10: K21.9] Diagnosis: Other idiopathic scoliosis, thoracic region[ICD10: M41.24] Diagnosis: Other dorsalgia[ICD10: M54.89] [facility] CPT-4: 71403 04/05/2019 29327 EST. PATIENT, LEVEL III Diagnosis: Acute laryngopharyngitis[ICD10: J06.0] Diagnosis: Other allergic rhinitis[ICD10: J30.89] Alison Ponce MD, [facility] CPT-4: 08500 02/07/2019 ([id number]) [id number] EST. P ATIENT, LEVEL IV Diagnosis: Gastro-esophageal reflux disease without esophagitis[ICD10: K21.9] Diagnosis: Other hypersomnia[ICD10: G47.19] Diagnosis: Snoring[ICD10: R06.83] Diagnosis: Obstructive sleep apnea (adult) (pediatric)[ICD10: G47.33] Marcia Ponce MD, [facility] CPT-4: 23773 01/03/2019 OFFICE VISIT, NEW - LEVEL 4 Diagnosis: Gastro-esophageal reflux disease without esophagitis[ICD10: K21.9] Diagnosis: Other allergic rhinitis[ICD10: J30.89] Diagnosis: Generalized anxiety disorder[ICD10: F41.1] Diagnosis: Major depressive disorder, recurrent, mild[ICD10: F33.0] Kenzie Ponce MD, [facility] CPT-4: 72472 11/27/2018 Plan of Care Planned Activity Notes C odes Status Date Visit Plan: Chronic back pain with scolioisis [...] not improving. 04/05/2019 Appointment: Marcia Ponce WPtel: [address] [place], [place] [address] (15 min) Moderate 04/05/2019 Patient Education: Patient [...] allergy spray. 02/07/2019 Appointment: Alison Rosen WPtel: [facility] (15 min) Moderate 02/07/2019 Patient Education: Patient [...] be performed - pt to go to [facility] for outpatient sleep lab sleep study. Hx of Lymes disease - supportive care only at this time. 01/03/2019 Appointment: Marcia Ponce WPtel: [address] [place], [place] [address] (15 min) Moderate 01/03/2019 Patient Education: Patient [...] first 11/27/2018 Appointment: Kenzie Cox [facility]Ptel[facility] [phone] [facility] [place] New Patient 11/27/2018 Patient Education: Patient Medication [...] be performed - pt to go to [facility] for outpatient sleep lab sleep study. [...]
--- OUTSIDE RECORDS SUMMARY | 2020-01-22 07:05 | XMS REPORT | CCD ---
Author Author Flavia Cox Organization Marcia Ponce MD, [facility] Address [address] [place] [address] Phone Care Team Providers Care Travel Med Surg Rn Name Role Phone PP Unavailable CCM Unavailable Summary Purpose Interface Exchange Insurance Providers Payer name Policy type / Coverage type Covered green party ID Effective Begin Date Effective End Date WPS Medicare Part B Medicare Part B [id number] Unknown Unknown Cigna Medicare Part B No [...] AND FIBROMYALGIA 11/27/[address]: 500639419 Never smoker 11/27/2018 Alcohol history Unknown occasionally [...] Instructions Zithromax Z-Carlos 250 mg tablet RxNorm: 391159 Tablet(s) PO UD 02/07/2019 No Stop Date Active Kenalog 40 mg/mL denise pension for injection RxNorm: 2655137 1 Milliliter(s) Inj 02/07/2019 02/07/2019 In active lisinopril 10 mg tablet RxNorm: 367015 1 Tablet(s) PO daily 01/16/2019 07/14/2019 Active meloxicam 7.5 mg tablet RxNorm: 785665 1 Tablet(s) PO daily . May increase to t wice daily if needed 12/05/2018 03/04/2019 Active meloxicam 7.5 mg tablet RxNorm: 514285 1 Tablet(s) PO daily . May increase to t wice daily if needed 12/05/2018 12/04/2018 Inactive Cymbalta 60 mg capsu le,delayed release RxNorm: 385104 1 Capsule(s) PO daily 11/27/2018 05/25/2019 Ac tive Lexapro 20 mg tablet RxNorm: 1 Tablet(s) PO daily 11/27/2018 11/27/2018 Inactive Kenalog 40 mg/mL denise pension for injection RxNorm: 9696883 Milliliter(s) Inj 11/27/2018 11/27/2018 In active lisinopril 10 mg tablet RxNorm: 299935 1 Tablet(s) PO daily No Start Date 01/15/2019 Inactive Medication Administered Medication Codes Instruc tions Start Date Status Kenalog 40 mg/mL suspension for injection RxNorm: 7770882 1Milliliter 02/07/2019 N o longer Active Kenalog 40 mg/mL suspension for injection RxNorm: 0426496 Milliliter 11/27/2018 No longer Active Immunizations No [...] 29.6 pg 12/04/2018 Cbc With Differential Ord2 [place]% 7.7 % 12/04/2018 Cbc With Differential Ord2 [...] 2.99 K/ul 12/04/2018 Cbc With Differential Ord2 [place] ABS# 0.6 K/ul 12/04/2018 Cbc With Differential Ord2 Eos ABS# 0.1 K/ul 12/04/2018 Cbc With Differential Ord2 Baso ABS# 0.0 K/ul 12/04/2018 Lipid Ord30 CHOL 228 mg/dL 12/04/2018 Lipid Ord30 HDL 71.0 mg/dl 12/04/2018 Lipid Ord30 TRIG 184 mg/dL 12/04/2018 Lipid Ord30 LDL 120 mg/dL 12/04/2018 Lipid Ord30 C/HDL 3.2 Ratio 12/04/2018 Tsh Ord6 TSH (3rd IS) 1.77 uIU/mL 12/04/2018 Comp Metabolic Dsg530 NA 137 mEq/L 12/04/2018 Comp Metabolic She462 K 5.0 mEq/L 12/04/2018 Comp Metabolic Znj233 CL 101 mEq/L 12/04/2018 Comp Metabolic Vrr845 CO2 31.0 mEq/L 12/04/2018 Comp Metabolic Xqk482 AN ION GAP 10 12/04/2018 Comp Metabolic Sgq364 GL UCOSE 95 mg/dL 12/04/2018 Comp Metabolic Exy643 Cr eat 0.7 mg/dL 12/04/2018 Comp Metabolic Shs351 eG FR 94 ml/min/1.73m2 12/04 Comp Metabolic Kth896 BUN 26 mg/dL 12/04/2018 Comp Metabolic Vsa587 B/ C Ratio 38.8 Ratio 12/04/2018 Comp Metabolic Wsk542 CA LCIUM 10.2 mg/dL 12/04/2018 Comp Metabolic Eyk302 AL K PHOS 83 U/L 12/04/2018 Comp Metabolic Bau607 T(SGOT) 13 U/L 12/04/2018 Comp Metabolic Nyw057 AL T(SGPT) 12 U/L 12/04/2018 Comp Metabolic Ckq862 BI LI T 0.5 mg/dL 12/04/2018 Comp Metabolic Kkh034 AL BUMIN 4.5 g/dL 12/04/2018 Comp Metabolic Oyu577 TP RO 7.3 g/dL 12/04/2018 Comp Metabolic Zpd752 GL OB 2.8 g/dL 12/04/2018 Comp Metabolic Wss927 A/ G Ratio 1.6 Ratio 12/04/2018 Comp Metabolic Fro619 Os mo 278 mOsmo 12/04/2018 Review of [...] CPT-4: J3301 02/07/2019 THER/PROPH/DIAG INJ SC/IM CPT-4: 71126 02/07/2019 THER/PROPH/DIAG INJ SC/IM CPT-4: 20424 11/27/2018 TRIAMCINOLONE ACET I [place] NOS CPT-4: J3301 11/27/2018 Vital Signs Date Vital 02/07/2019 Blood Pressure 1: 134/78 Code: 8480-6 Heart Rate 1: 101 bpm Height: 5'2" SpO2: 98% 01/03/2019 Blood Pressure 1: 130/48 Code: 8480-6 BMI: 30.7 Code: 46282-7 Heart Rate 1: 103 bpm Height: 5'2" SpO2: 98% Weight: 165 lbs 11/27/2018 Blood Pressure 1: 136/80 Code: 8480-6 BMI: 30.9 Code: 79956-0 Heart Rate 1: 88 bpm Height: 5'2" [...] Other allergic rhinitis[ICD10: J30.89] Alison Ponce MD, [facility] CPT-4: 09804 02/07/2019 ([id number] EST. P ATIENT, LEVEL IV Diagnosis: Gastro-esophageal reflux disease without esophagitis[ICD10: K21.9] Diagnosis: Other hypersomnia[ICD10: G47.19] Diagnosis: Snoring[ICD10: R06.83] Diagnosis: Obstructive sleep apnea (adult) (pediatric)[ICD10: G47.33] Marcia Ponce MD, [facility] CPT-4: 84777 01/03/2019 OFFICE VISIT, NEW - LEVEL 4 Diagnosis: Gastro-esophageal reflux disease without esophagitis[ICD10: K21.9] Diagnosis: Other allergic rhinitis[ICD10: J30.89] Diagnosis: Generalized anxiety disorder[ICD10: F41.1] Diagnosis: Major depressive disorder, recurrent, mild[ICD10: F33.0] Kenzie Ponce MD, [facility] CPT-4: 52912 11/27/2018 Plan of Care Planned Activity Notes [...] allergy spray. 02/07/2019 Appointment: Alison Rosen WPtel: [address] [facility] (15 min) Moderate 02/07/2019 Patient Education: Patient [...] be performed - pt to go to [facility] for outpatient sleep lab sleep study. Hx of Lymes disease - supportive care only at this time. 01/03/2019 Appointment: [phone] ([facility] min) Moderate 01/03/2019 Patient Education: [...] first 11/27/2018 Appointment: [phone] New Patient 11/27/2018 Patient Education: Patient [...]
[2020-01-22] MEDS ORDERED: LACTATED RINGERS 1,000 ML IV STA (07:06)
--- OUTSIDE RECORDS SUMMARY | 2020-01-22 07:06 | XMS REPORT | CCD ---
Author Author Flavia Cox Organization Marcia Ponce MD, [facility] Address [address] [place] [address] Phone Care Team Providers Care Official Greeter Name Role Phone PP Unavailable CCM Unavailable Summary Purpose Interface Exchange Insurance Providers Payer name Policy type / Coverage type Covered democrat ID Effective Begin Date Effective End Date WPS Medicare Part B Medicare Part B [id number] Unknown Unknown Cigna Medicare Part B No [...] AND FIBROMYALGIA 11/27/[address]: 003193747 Never smoker 11/27/2018 Alcohol history Unknown occasionally drinks alcohol 11/27/2018 Allergies, Adverse Reactions, Alerts Substance Reaction Codes Entered Date Inactivated Date Status * NO KNOWN DRUG DINA RGIES Unknown 11/27/2018 No Inactive Date Active Past Medical History Illness Codes Condition Status Onset Date Resolved Date Gastro-esophageal re flux disease without esophagitis ICD-9: 530.81 ICD-10: K21.9 Active 11/27/2018 Unknown Generalized anxiety disorder ICD-9: 300.02 ICD-10: F41.1 Active 11/27/2018 Unknown Major depressive dis order, recurrent, mild ICD-9: 296.31 ICD-10: F33.0 Active 11/27/2018 Unknown Other allergic rhinitis ICD-9: 477.8 ICD-10: J30.89 Active 11/27/2018 Unknown Problems Condition Codes Effectiv e Dates Condition Status Gastro-esophageal re flux disease without esophagitis ICD-9: 530.81 ICD-10: K21.9 11/27/2018 Active Generalized anxiety disorder ICD-9: 300.02 ICD-10: F41.1 11/27/2018 Active Major depressive dis order, recurrent, mild ICD-9: 296.31 ICD-10: F33.0 11/27/2018 Active Other allergic rhinitis ICD-9: 477.8 ICD-10: J30.89 11/27/2018 Active Medications Medication Codes Instruc tions Start Date Stop Date Sta tus Fill Instructions Lexapro 20 mg tablet RxNorm: 1 Tablet(s) PO daily 11/27/2018 11/27/2018 Inactive Cymbalta 60 mg capsu le,delayed release RxNorm: 478414 1 Capsule(s) PO daily 11/27/2018 05/25/2019 Ac tive Kenalog 40 mg/mL denise pension for injection RxNorm: 6781740 Milliliter(s) Inj 11/27/2018 11/27/2018 In active lisinopril 10 mg tablet RxNorm: 082445 1 Tablet(s) PO daily No Start Date Active Medication Administered Medication Codes Instruc tions Start Date Status Kenalog 40 mg/mL suspension for injection RxNorm: 8072262 Milliliter 11/27/2018 Ac tive Immunizations No Immunization data Assessments Condition Codes Effectiv e Dates Major depressive disorder, recurrent, mild ICD-10: F33.0 ICD-9: 296.31 11/27/2018 Generalized anxiety disorder ICD-10: F41.1 ICD-9: 300.02 11/27/2018 Other allergic rhinitis ICD-10: J30. 89 ICD-9: 477.8 11/27/2018 Gastro-esophageal reflux disease without esophagitis ICD-10: K21.9 ICD-9: 530.81 11/27/2018 Reason For Visit Reason For Visit Effective Dates Notes back pain 11/27/2018 Results No Results data Review of Systems System Result Effective Dates Gastrointestinal gastroesophageal reflux 11/27/2018 Gastrointestinal constipation 11/27/2018 [...] clear 11/27/2018 None Procedures Procedure Codes Date THER/PROPH/DIAG INJ SC/IM CPT-4: 50201 11/27/2018 TRIAMCINOLONE ACET I [place] NOS CPT-4: J3301 11/27/2018 Vital Signs Date Vital 11/27/2018 Blood Pressure 1: 136/80 Code: 8480-6 BMI: 30.9 Code: 74410-1 Heart Rate 1: 88 bpm Height: 5'2" SpO2: 96% Weight: 166 lbs Functional Status No Functional Status data History of Present Illness Symptom Name Status Resu lt Effective Date Notes Onset and Resolution o ngoing 11/27/2018 None [...] Encounters Encounter Performer Loca tion Codes Date OFFICE VISIT, NEW - LEVEL 4 Diagnosis: Gastro-esophageal reflux disease without esophagitis[ICD10: K21.9] Diagnosis: Other allergic rhinitis[ICD10: J30.89] Diagnosis: Generalized anxiety disorder[ICD10: F41.1] Diagnosis: Major depressive disorder, recurrent, mild[ICD10: F33.0] Kenzie Ponce MD, [facility] CPT-4: 54219 11/27/2018 Plan of Care Planned Activity Notes C odes Status Date Visit Plan: Esophageal Reflux - the patient [...] -consider starting mobic -check labs first 11/27/2018 Patient Education: Patient Medication Summary Completed 11/27/2018 Patient Education: Depression Completed 11/27/2018 Care Plan: Comp Metabolic Pending 11/27/2018 Care Plan: Cbc With Differential Pending 11/27/2018 Care Plan: Tsh Pending 11/27/2018 Care Plan: Lipid Pending 11/27/2018 Care Plan: Comp Metabolic Pending 11/27/2018 Instructions Comment KENALOG INJECTION TO DAY CONTINUE MANOJ NASAL [...]
--- OUTSIDE RECORDS SUMMARY | 2020-01-22 07:06 | XMS REPORT | CCD ---
Author Author Flavia Cox Organization Marcia Ponce MD, [facility] Address [address] [place] [address] Phone Care Team Providers Care Business Support Administrator Name Role Phone PP Unavailable CCM Unavailable Summary Purpose Interface Exchange Insurance Providers Payer name Policy type / Coverage type Covered republican ID Effective Begin Date Effective End Date WPS Medicare Part B Medicare Part B [id number] Unknown Unknown Cigna Medicare Part B No [...] AND FIBROMYALGIA 11/27/[address]: 115438495 Never smoker 11/27/2018 Alcohol history Unknown occasionally [...] Cymbalta 60 mg capsu le,delayed release RxNorm: 163792 1 Capsule(s) PO daily 11/27/2018 05/25/2019 Ac tive Kenalog 40 mg/mL denise pension for injection RxNorm: 5988778 Milliliter(s) Inj 11/27/2018 11/27/2018 In active lisinopril 10 mg tablet RxNorm: 700798 1 Tablet(s) PO daily No Start Date Active Medication Administered Medication Codes Instruc tions Start Date Status Kenalog 40 mg/mL suspension for injection RxNorm: 9065803 Milliliter 11/27/2018 Ac tive Immunizations No Immunization [...] Procedure Codes Date THER/PROPH/DIAG INJ SC/IM CPT-4: 32505 11/27/2018 TRIAMCINOLONE ACET I [place] NOS CPT-4: J3301 11/27/2018 Vital Signs Date Vital 11/27/2018 Blood Pressure 1: 136/80 Code: 8480-6 BMI: 30.9 Code: 31091-2 Heart Rate 1: 88 bpm Height: 5'2" [...] disorder, recurrent, mild[ICD10: F33.0] Kenzie Ponce MD, [facility] CPT-4: 01872 11/27/2018 Plan of Care Planned Activity Notes [...]
--- OUTSIDE RECORDS SUMMARY | 2020-01-22 07:06 | XMS REPORT | CCD ---
Author Author Flavia Cox Organization Marcia Ponce MD, [facility] Address [address] [place] [address] Phone Care Team Providers Care Temporary Receptionist Name Role Phone PP Unavailable CCM Unavailable Summary Purpose Interface Exchange Insurance Providers Payer name Policy type / Coverage type Covered libertarian ID Effective Begin Date Effective End Date WPS Medicare Part B Medicare Part B [id number] Unknown Unknown Cigna Medicare Part B No [...] AND FIBROMYALGIA 11/27/[address]: 615130493 Never smoker 11/27/2018 Alcohol history Unknown occasionally [...] Date Stop Date Sta tus Fill Instructions meloxicam 7.5 mg tablet RxNorm: 565883 1 Tablet(s) PO daily . May increase to t wice daily if needed 12/05/2018 03/04/2019 Active meloxicam 7.5 mg tablet RxNorm: 970379 1 Tablet(s) PO daily . May increase to t wice daily if needed 12/05/2018 12/04/2018 Inactive Cymbalta 60 mg capsu le,delayed release RxNorm: 825225 1 Capsule(s) PO daily 11/27/2018 05/25/2019 Ac tive Lexapro 20 mg tablet RxNorm: 1 Tablet(s) PO daily 11/27/2018 11/27/2018 Inactive Kenalog 40 mg/mL denise pension for injection RxNorm: 2580086 Milliliter(s) Inj 11/27/2018 11/27/2018 In active lisinopril 10 mg tablet RxNorm: 725172 1 Tablet(s) PO daily No Start Date Active Medication Administered Medication Codes Instruc tions Start Date Status Kenalog 40 mg/mL suspension for injection RxNorm: 2272653 Milliliter 11/27/2018 No longer Active Immunizations No Immunization data Assessments Condition Codes Effectiv e Dates Gastro-esophageal reflux disease without esophagitis ICD-10: K21.9 ICD-9: 530.81 01/03/2019 Obstructive sleep apnea (adult) (pediatric) ICD-10: G47.33 ICD-9: 327.23 01/03/2019 Snoring ICD-10: R06.83 ICD-9: 786.09 01/03/2019 Other hypersomnia ICD-10: G47.19 ICD-9: 780.54 01/03/2019 Major depressive disorder, recurrent, mild ICD-10: F33.0 ICD-9: 296.31 11/27/2018 Generalized anxiety disorder ICD-10: F41.1 ICD-9: 300.02 11/27/2018 Other allergic rhinitis ICD-10: J30. 89 ICD-9: 477.8 11/27/2018 Reason For Visit Reason For Visit Effective Dates Notes fatigue 01/03/2019 back pain 11/27/2018 Results Observation [...] 29.6 pg 12/04/2018 Cbc With Differential Ord2 [place]% 7.7 % 12/04/2018 Cbc With Differential Ord2 [...] 2.99 K/ul 12/04/2018 Cbc With Differential Ord2 [place] ABS# 0.6 K/ul 12/04/2018 Cbc With Differential Ord2 Eos ABS# 0.1 K/ul 12/04/2018 Cbc With Differential Ord2 Baso ABS# 0.0 K/ul 12/04/2018 Lipid Ord30 CHOL 228 mg/dL 12/04/2018 Lipid Ord30 HDL 71.0 mg/dl 12/04/2018 Lipid Ord30 TRIG 184 mg/dL 12/04/2018 Lipid Ord30 LDL 120 mg/dL 12/04/2018 Lipid Ord30 C/HDL 3.2 Ratio 12/04/2018 Tsh Ord6 TSH (3rd IS) 1.77 uIU/mL 12/04/2018 Comp Metabolic Hwr786 NA 137 mEq/L 12/04/2018 Comp Metabolic Vsq679 K 5.0 mEq/L 12/04/2018 Comp Metabolic Ytx570 CL 101 mEq/L 12/04/2018 Comp Metabolic Fmz382 CO2 31.0 mEq/L 12/04/2018 Comp Metabolic Ioe667 AN ION GAP 10 12/04/2018 Comp Metabolic Pqj041 GL UCOSE 95 mg/dL 12/04/2018 Comp Metabolic Blr265 Cr eat 0.7 mg/dL 12/04/2018 Comp Metabolic Uzb741 eG FR 94 ml/min/1.73m2 12/04 Comp Metabolic Auq590 BUN 26 mg/dL 12/04/2018 Comp Metabolic Iis851 B/ C Ratio 38.8 Ratio 12/04/2018 Comp Metabolic Gyi539 CA LCIUM 10.2 mg/dL 12/04/2018 Comp Metabolic Vgr900 AL K PHOS 83 U/L 12/04/2018 Comp Metabolic Byp881 T(SGOT) 13 U/L 12/04/2018 Comp Metabolic Guq335 AL T(SGPT) 12 U/L 12/04/2018 Comp Metabolic Rwj544 BI LI T 0.5 mg/dL 12/04/2018 Comp Metabolic Hfs196 AL BUMIN 4.5 g/dL 12/04/2018 Comp Metabolic Sws096 TP RO 7.3 g/dL 12/04/2018 Comp Metabolic Tdv383 GL OB 2.8 g/dL 12/04/2018 Comp Metabolic Jab997 A/ G Ratio 1.6 Ratio 12/04/2018 Comp Metabolic Igy154 Os mo 278 mOsmo 12/04/2018 Review of Systems System Result Effective Dates Constitutional recent illness 01/03/2019 Constitutional No anorexia [...] Procedure Codes Date THER/PROPH/DIAG INJ SC/IM CPT-4: 01575 11/27/2018 TRIAMCINOLONE ACET I [place] NOS CPT-4: J3301 11/27/2018 Vital Signs Date Vital 01/03/2019 Blood Pressure 1: 130/48 Code: 8480-6 BMI: 30.7 Code: 87026-0 Heart Rate 1: 103 bpm Height: 5'2" SpO2: 98% Weight: 165 lbs 11/27/2018 Blood Pressure 1: 136/80 Code: 8480-6 BMI: 30.9 Code: 94739-1 Heart Rate 1: 88 bpm Height: 5'2" SpO2: 96% Weight: 166 lbs Functional Status No Functional Status data History of Present Illness Symptom Name Status Resu lt Effective Date Notes Limitation on Activities does not limit activities [...] Encounter Performer Loca tion Codes Date [facility] Diagnosis: Gastro-esophageal reflux disease without esophagitis[ICD10: K21.9] Diagnosis: Other hypersomnia[ICD10: G47.19] Diagnosis: Snoring[ICD10: R06.83] Diagnosis: Obstructive sleep apnea (adult) (pediatric)[ICD10: G47.33] Marcia Ponce MD, [facility] CPT-4: 49311 01/03/2019 OFFICE VISIT, NEW - LEVEL 4 Diagnosis: Gastro-esophageal reflux disease without esophagitis[ICD10: K21.9] Diagnosis: Other allergic rhinitis[ICD10: J30.89] Diagnosis: Generalized anxiety disorder[ICD10: F41.1] Diagnosis: Major depressive disorder, recurrent, mild[ICD10: F33.0] Kenzie Ponce MD, [facility] CPT-4: 67043 11/27/2018 Plan of Care Planned Activity Notes [...] be performed - pt to go to [facility] for outpatient sleep lab sleep study. Hx of Lymes disease - supportive care only at this time. 01/03/2019 Patient Education: Patient Medication Summary Completed [...] labs first 11/27/2018 Appointment: Kenzie Cox WPtel: [address] [place], [place] [phone] [place] New Patient 11/27/2018 Patient Education: Patient [...]
--- OUTSIDE RECORDS SUMMARY | 2020-01-22 07:06 | XMS REPORT | CCD ---
Author Author Flavia Cox Organization Marcia Ponce MD, [facility] Address [address] [place] [address] Phone Care Team Providers Care Belt Dresser Name Role Phone PP Unavailable CCM Unavailable Summary Purpose Interface Exchange Insurance Providers Payer name Policy type / Coverage type Covered alliance party ID Effective Begin Date Effective End Date WPS Medicare Part B Medicare Part B [id number] Unknown Unknown Cigna Medicare Part B No [...] AND FIBROMYALGIA 11/27/[address]: 494038089 Never smoker 11/27/2018 Alcohol history Unknown occasionally [...] Date Stop Date Sta tus Fill Instructions lisinopril 10 mg tablet RxNorm: 620727 1 Tablet(s) PO daily 01/16/2019 07/14/2019 Active meloxicam 7.5 mg tablet RxNorm: 201921 1 Tablet(s) PO daily . May increase to t wice daily if needed 12/05/2018 03/04/2019 Active meloxicam 7.5 mg tablet RxNorm: 640548 1 Tablet(s) PO daily . May increase to t wice daily if needed 12/05/2018 12/04/2018 Inactive Cymbalta 60 mg capsu le,delayed release RxNorm: 890992 1 Capsule(s) PO daily 11/27/2018 05/25/2019 Ac tive Lexapro 20 mg tablet RxNorm: 1 Tablet(s) PO daily 11/27/2018 11/27/2018 Inactive Kenalog 40 mg/mL denise pension for injection RxNorm: 7927432 Milliliter(s) Inj 11/27/2018 11/27/2018 In active lisinopril 10 mg tablet RxNorm: 090245 1 Tablet(s) PO daily No Start Date 01/15/2019 Inactive Medication Administered Medication Codes Instruc tions Start Date Status Kenalog 40 mg/mL suspension for injection RxNorm: 0327955 Milliliter 11/27/2018 No longer Active Immunizations No [...] 29.6 pg 12/04/2018 Cbc With Differential Ord2 [place]% 7.7 % 12/04/2018 Cbc With Differential Ord2 [...] 2.99 K/ul 12/04/2018 Cbc With Differential Ord2 [place] ABS# 0.6 K/ul 12/04/2018 Cbc With Differential Ord2 Eos ABS# 0.1 K/ul 12/04/2018 Cbc With Differential Ord2 Baso ABS# 0.0 K/ul 12/04/2018 Lipid Ord30 CHOL 228 mg/dL 12/04/2018 Lipid Ord30 HDL 71.0 mg/dl 12/04/2018 Lipid Ord30 TRIG 184 mg/dL 12/04/2018 Lipid Ord30 LDL 120 mg/dL 12/04/2018 Lipid Ord30 C/HDL 3.2 Ratio 12/04/2018 Tsh Ord6 TSH (3rd IS) 1.77 uIU/mL 12/04/2018 Comp Metabolic Tvv474 NA 137 mEq/L 12/04/2018 Comp Metabolic Lbh470 K 5.0 mEq/L 12/04/2018 Comp Metabolic Ygs276 CL 101 mEq/L 12/04/2018 Comp Metabolic Ibi682 CO2 31.0 mEq/L 12/04/2018 Comp Metabolic Ilp146 AN ION GAP 10 12/04/2018 Comp Metabolic Khb542 GL UCOSE 95 mg/dL 12/04/2018 Comp Metabolic Mqz007 Cr eat 0.7 mg/dL 12/04/2018 Comp Metabolic Uuv285 eG FR 94 ml/min/1.73m2 12/04 Comp Metabolic Hjg301 BUN 26 mg/dL 12/04/2018 Comp Metabolic Xtd824 B/ C Ratio 38.8 Ratio 12/04/2018 Comp Metabolic Pek340 CA LCIUM 10.2 mg/dL 12/04/2018 Comp Metabolic Wgm940 AL K PHOS 83 U/L 12/04/2018 Comp Metabolic Hgp249 T(SGOT) 13 U/L 12/04/2018 Comp Metabolic Hmy133 AL T(SGPT) 12 U/L 12/04/2018 Comp Metabolic Jxp922 BI LI T 0.5 mg/dL 12/04/2018 Comp Metabolic Khi374 AL BUMIN 4.5 g/dL 12/04/2018 Comp Metabolic Rfk146 TP RO 7.3 g/dL 12/04/2018 Comp Metabolic Sed276 GL OB 2.8 g/dL 12/04/2018 Comp Metabolic Lza416 A/ G Ratio 1.6 Ratio 12/04/2018 Comp Metabolic Swr639 Os mo 278 mOsmo 12/04/2018 Review of [...] Procedure Codes Date THER/PROPH/DIAG INJ SC/IM CPT-4: 32767 11/27/2018 TRIAMCINOLONE ACET I [place] NOS CPT-4: J3301 11/27/2018 Vital Signs Date Vital 01/03/2019 Blood Pressure 1: 130/48 Code: 8480-6 BMI: 30.7 Code: 54507-2 Heart Rate 1: 103 bpm Height: 5'2" SpO2: 98% Weight: 165 lbs 11/27/2018 Blood Pressure 1: 136/80 Code: 8480-6 BMI: 30.9 Code: 76168-4 Heart Rate 1: 88 bpm Height: 5'2" [...] Encounters Encounter Performer Loca tion Codes Date ( 60446 EST. P ATIENT, LEVEL IV Diagnosis: Gastro-esophageal reflux disease without esophagitis[ICD10: K21.9] Diagnosis: Other hypersomnia[ICD10: G47.19] Diagnosis: Snoring[ICD10: R06.83] Diagnosis: Obstructive sleep apnea (adult) (pediatric)[ICD10: G47.33] Marcia Ponce MD, [facility] CPT-4: 58034 01/03/2019 OFFICE VISIT, NEW - LEVEL 4 Diagnosis: Gastro-esophageal reflux disease without esophagitis[ICD10: K21.9] Diagnosis: Other allergic rhinitis[ICD10: J30.89] Diagnosis: Generalized anxiety disorder[ICD10: F41.1] Diagnosis: Major depressive disorder, recurrent, mild[ICD10: F33.0] Kenzie Ponce MD, [facility] CPT-4: 75785 11/27/2018 Plan of Care Planned Activity Notes [...] time. 01/03/2019 Appointment: [facility] [phone] [phone] ([facility] Moderate 01/03/2019 Patient Education: [...] labs first 11/27/2018 Appointment: [facility] [phone] [phone] [place] [address] New Patient 11/27/2018 Patient Education: Patient Medication [...]
--- OUTSIDE RECORDS SUMMARY | 2020-01-22 07:06 | XMS REPORT | CCD ---
Author Author Flavia Cox Organization Marcia Ponce MD, [facility] Address [address] [place] [address] Phone Care Team Providers Care Software Integration Developer Name Role Phone PP Unavailable CCM Unavailable Summary Purpose Interface Exchange Insurance Providers Payer name Policy type / Coverage type Covered constitution party ID Effective Begin Date Effective End Date WPS Medicare Part B Medicare Part B [id number] Unknown Unknown Cigna Medicare Part B No [...] AND FIBROMYALGIA 11/27/[address]: 808665780 Never smoker 11/27/2018 Alcohol history Unknown occasionally [...] Fill Instructions meloxicam 7.5 mg tablet RxNorm: 224126 1 Tablet(s) PO daily . May increase to t wice daily if needed 12/05/2018 03/04/2019 Active meloxicam 7.5 mg tablet RxNorm: 624617 1 Tablet(s) PO daily . May increase to t wice daily if needed 12/05/2018 12/04/2018 Inactive Cymbalta 60 mg capsu le,delayed release RxNorm: 820987 1 Capsule(s) PO daily 11/27/2018 05/25/2019 Ac tive Lexapro 20 mg tablet RxNorm: 1 Tablet(s) PO daily 11/27/2018 11/27/2018 Inactive Kenalog 40 mg/mL denise pension for injection RxNorm: 0971653 Milliliter(s) Inj 11/27/2018 11/27/2018 In active lisinopril 10 mg tablet RxNorm: 255564 1 Tablet(s) PO daily No Start Date Active Medication Administered Medication Codes Instruc tions Start Date Status Kenalog 40 mg/mL suspension for injection RxNorm: 2068293 Milliliter 11/27/2018 No longer Active Immunizations No [...] Effective Dates Notes back pain 11/27/2018 Results Observation Observation Code [...] 29.6 pg 12/04/2018 Cbc With Differential Ord2 Lane% 7.7 % 12/04/2018 Cbc With Differential Ord2 [...] 2.99 K/ul 12/04/2018 Cbc With Differential Ord2 Lane ABS# 0.6 K/ul 12/04/2018 Cbc With Differential Ord2 Eos ABS# 0.1 K/ul 12/04/2018 Cbc With Differential Ord2 Baso ABS# 0.0 K/ul 12/04/2018 Lipid Ord30 CHOL 228 mg/dL 12/04/2018 Lipid Ord30 HDL 71.0 mg/dl 12/04/2018 Lipid Ord30 TRIG 184 mg/dL 12/04/2018 Lipid Ord30 LDL 120 mg/dL 12/04/2018 Lipid Ord30 C/HDL 3.2 Ratio 12/04/2018 Tsh Ord6 TSH (3rd IS) 1.77 uIU/mL 12/04/2018 Comp Metabolic Ikr301 NA 137 mEq/L 12/04/2018 Comp Metabolic Dhg660 K 5.0 mEq/L 12/04/2018 Comp Metabolic Pvo030 CL 101 mEq/L 12/04/2018 Comp Metabolic Xrl259 CO2 31.0 mEq/L 12/04/2018 Comp Metabolic Iaa254 AN ION GAP 10 12/04/2018 Comp Metabolic Myb870 GL UCOSE 95 mg/dL 12/04/2018 Comp Metabolic Nun100 Cr eat 0.7 mg/dL 12/04/2018 Comp Metabolic Urc525 eG FR 94 ml/min/1.73m2 12/04 Comp Metabolic Cmc940 BUN 26 mg/dL 12/04/2018 Comp Metabolic Ixy358 B/ C Ratio 38.8 Ratio 12/04/2018 Comp Metabolic Sbc196 CA LCIUM 10.2 mg/dL 12/04/2018 Comp Metabolic Gqw692 AL K PHOS 83 U/L 12/04/2018 Comp Metabolic Gnf562 T(SGOT) 13 U/L 12/04/2018 Comp Metabolic Mua920 AL T(SGPT) 12 U/L 12/04/2018 Comp Metabolic Nef961 BI LI T 0.5 mg/dL 12/04/2018 Comp Metabolic Moe409 AL BUMIN 4.5 g/dL 12/04/2018 Comp Metabolic Ppu279 TP RO 7.3 g/dL 12/04/2018 Comp Metabolic Few842 GL OB 2.8 g/dL 12/04/2018 Comp Metabolic Doy874 A/ G Ratio 1.6 Ratio 12/04/2018 Comp Metabolic Trb589 Os mo 278 mOsmo 12/04/2018 Review of [...] clear 11/27/2018 None Full Exam - General 1995 Ears/Nose/Throat oral cavity/pharynx/larynx Overall: oral mucosa clear 11/27/2018 None Procedures Procedure Codes Date THER/PROPH/DIAG INJ SC/IM CPT-4: 98742 11/27/2018 TRIAMCINOLONE ACET I [place] NOS CPT-4: J3301 11/27/2018 Vital Signs Date Vital 11/27/2018 Blood Pressure 1: 136/80 Code: 8480-6 BMI: 30.9 Code: 74718-5 Heart Rate 1: 88 bpm Height: 5'2" [...] disorder, recurrent, mild[ICD10: F33.0] [facility] CPT-4: 83078 11/27/2018 Plan of Care Planned Activity Notes [...] first 11/27/2018 Appointment: [facility] [phone] [phone] New Patient 11/27/2018 Patient Education: Patient [...]
--- OUTSIDE RECORDS SUMMARY | 2020-01-22 07:07 | XMS REPORT | Continuity of Care Document ---
Author Organization Unknown Address Unknown Phone Unavailable Allergies Active Description Code Type Severity Reaction Onset Reported/Identified Relationship to Patient Clinical Status Yes No Allergy Information Available [id number] Drug Allergy Unknown N/A 015 Yes No Known Drug Allergies [id number] Drug Allergy Unknown N/A 01/15/2020 Medications There is no data. Problems Date Dx Coded Attending Type Code Diagnosis Diagnosed By 07/07/1120 SHERYL CADENA, SHERLYN Guzman Ot M41 .9 07/07/1199 SHAYY COOK DO Ot Z01.818 ENCOUNTER FOR OTHER PREPROCEDURAL EXAMIN 07/07/1211 YARON GASTELUMP Ot M54.9 DORSALGIA, UNSPECIFIED 07/07/1211 YARON GASTELUMP Ot R26.89 OTHER ABNORMALITIES OF GAIT AND MOBILITY 07/15/2014 MAHESH VAZQUEZP Ot 241.0 02/27/2015 LATIA VAZQUEZ DO Ot 716.90 02/27/2015 LATIA VAZQUEZ DO Ot 737.30 05/09/2015 MAHESH VAZQUEZ NEWSPAPER PEDDLER Ot 737.30 05/13/2015 MAHESH VAZQUEZP Ot 737.30 05/20/2015 MAHESH VAZQUEZP Ot M41.9 SCOLIOSIS, UNSPECIFIED 05/20/2015 MAHESH VAZQUEZ NEWSPAPER PEDDLER Ot M47.816 SPONDYLOSIS W/O MYELOPATHY OR RADICULOPA 05/22/2015 MAHESH VAZQUEZP Ot 737.30 06/04/2015 MAHESH VAZQUEZP Ot K76.89 07/24/2015 MAHESH VAZQUEZP Ot R00.2 07/24/2015 LATIA VAZQUEZ DO Ot R00.2 07/24/2015 LATIA VAZQUEZ DO Ot R01.1 07/24/2015 LATIA VAZQUEZ DO Ot R06.00 07/24/2015 LATIA VAZQUEZ DO Ot R09.89 09/23/2015 SHERYL CADENA, SHERLYN Guzman Ot M41 .9 10/16/2015 SHERYL CADENA, SHERLYN Guzman Ot M41 .9 11/10/2015 SHERYL CADENA, SHERLYN Guzman Ot M41 .9 SCOLIOSIS, UNSPECIFIED 06/23/2016 LATIA VAZQUEZ DO Ot R10.13 EPIGASTRIC PAIN 06/23/2016 LATIA VAZQUEZ DO Ot R10.13 EPIGASTRIC PAIN 07/05/2016 LATIA VAZQUEZ DO Ot R10.13 EPIGASTRIC PAIN 07/26/2016 LATIA VAZQUEZ DO Ot R10.13 EPIGASTRIC PAIN 07/27/2016 LATIA VAZQUEZ DO Ot R10.13 EPIGASTRIC PAIN 08/12/2016 LATIA VAZQUEZ DO Ot R10.13 EPIGASTRIC PAIN 04/19/2017 KRYSTAL HUERTA DO Ot V76.1 2 OTH SCREEN MAMMO-MALIGN NEOPLASM OF [place] 04/19/2017 KRYSTAL HUERTA DO Ot 793.8 0 UNSPEC ABNORMAL MAMMOGRAM 04/19/2017 TENISHA CADENA, SHARAD Corbett Ot V72. 84 EXAM PRE-OPERATIVE NOS 04/19/2017 LATIA VAZQUEZ DO Ot 716.90 ARTHROPATHY NOS-UNSPEC 04/19/2017 MAHESH VAZQUEZ Ot 241.1 NONTOX MULTINODUL GOITER 04/19/2017 MAHESH VAZQUEZP Ot 241.0 NONTOX UNINODULAR GOITER 04/19/2017 MAHESH VAZQUEZ Ot V64.3 NO PROC FOR REASONS NEC 04/19/2017 MAHESH VAZQUEZP Ot 241.0 NONTOX UNINODULAR GOITER 04/19/2017 LATIA VAZQUEZ DO Ot 716.90 ARTHROPATHY NOS-UNSPEC 04/19/2017 LATIA VAZQUEZ DO Ot 737.30 IDIOPATHIC SCOLIOSIS 04/19/2017 MAHESH VAZQUEZ Ot 737.30 IDIOPATHIC SCOLIOSIS 04/19/2017 MAHESH VAZQUEZ Ot K76.89 OTHER SPECIFIED DISEASES OF LIVER 04/19/2017 MAHESH VAZQUEZ Ot R00.2 PALPITATIONS 04/19/2017 LATIA VAZQUEZ DO Ot R00.2 PALPITATIONS 04/19/2017 LATIA VAZQUEZ DO Ot R01.1 CARDIAC MURMUR, UNSPECIFIED 04/19/2017 LATIA VAZQUEZ DO Ot R06.00 DYSPNEA, UNSPECIFIED 04/19/2017 LATIA VAZQUEZ DO Ot R09.89 OTH SYMPTOMS AND SIGNS INVOLVING THE CIR 04/19/2017 LATIA VAZQUEZ DO Ot R10.13 EPIGASTRIC PAIN 04/19/2017 LATIA VAZQUEZ DO Ot R10.13 EPIGASTRIC PAIN 05/03/2017 MAHESH VAZQUEZ NEWSPAPER PEDDLER Ot E04.2 NONTOXIC MULTINODULAR GOITER 05/03/2017 MAHESH VAZQUEZ NEWSPAPER PEDDLER Ot Z12.31 ENCNTR SCREEN MAMMOGRAM FOR MALIGNANT NE 05/03/2017 MAHESH VAZQUEZ L NEWSPAPER PEDDLER Ot E04.2 NONTOXIC MULTINODULAR GOITER 05/03/2017 MAHESH VAZQUEZ L NEWSPAPER PEDDLER Ot Z12.31 ENCNTR SCREEN MAMMOGRAM FOR MALIGNANT NE 05/04/2017 MAHESH VAZQUEZ L NEWSPAPER PEDDLER Ot E04.2 NONTOXIC MULTINODULAR GOITER 05/04/2017 MODESTO VAZQUEZIA L NEWSPAPER PEDDLER Ot Z12.31 ENCNTR SCREEN MAMMOGRAM FOR MALIGNANT NE 05/11/2017 MAHESH VAZQUEZ L NEWSPAPER PEDDLER Ot E04.2 NONTOXIC MULTINODULAR GOITER 05/11/2017 MODESTO VAZQUEZIA L NEWSPAPER PEDDLER Ot Z12.31 ENCNTR SCREEN MAMMOGRAM FOR MALIGNANT NE 09/13/2017 KRYSTAL HUERTA DO Ot V76.1 2 OTH SCREEN MAMMO-MALIGN NEOPLASM OF [place] 09/13/2017 KRYSTAL HUERTA DO Ot 793.8 0 UNSPEC ABNORMAL MAMMOGRAM 09/13/2017 TENISHA CADENA, SHARAD Corbett Ot V72. 84 EXAM PRE-OPERATIVE NOS 09/13/2017 LATIA VAZQUEZ DO Ot 716.90 ARTHROPATHY NOS-UNSPEC 09/13/2017 MAHESH VAZQUEZ NEWSPAPER PEDDLER Ot 241.1 NONTOX MULTINODUL GOITER 09/13/2017 MAHESH VAZQUEZ NEWSPAPER PEDDLER Ot 241.0 NONTOX UNINODULAR GOITER 09/13/2017 MAHESH VAZQUEZP Ot V64.3 NO PROC FOR REASONS NEC 09/13/2017 MAHESH VAZQUEZ NEWSPAPER PEDDLER Ot 241.0 NONTOX UNINODULAR GOITER 09/13/2017 LATIA VAZQUEZ DO Ot 716.90 ARTHROPATHY NOS-UNSPEC 09/13/2017 LATIA VAZQUEZ DO Ot 737.30 IDIOPATHIC SCOLIOSIS 09/13/2017 MAHESH VAZQUEZP Ot 737.30 IDIOPATHIC SCOLIOSIS 09/13/2017 MAHESH VAZQUEZP Ot K76.89 OTHER SPECIFIED DISEASES OF LIVER 09/13/2017 MAHESH VAZQUEZ Ot R00.2 PALPITATIONS 09/13/2017 LATIA VAZQUEZ DO Ot R00.2 PALPITATIONS 09/13/2017 LATIA VAZQUEZ DO Ot R01.1 CARDIAC MURMUR, UNSPECIFIED 09/13/2017 LATIA VAZQUEZ DO Ot R06.00 DYSPNEA, UNSPECIFIED 09/13/2017 LATIA VAZQUEZ DO Ot R09.89 OTH SYMPTOMS AND SIGNS INVOLVING THE CIR 09/13/2017 LATIA VAZQUEZ DO Ot R10.13 EPIGASTRIC PAIN 09/13/2017 LATIA VAZQUEZ DO Ot R10.13 EPIGASTRIC PAIN 09/14/2017 AUBREY VARGHESE MD ([facility]) Ot M17.11 UNILATERAL PRIMARY OSTEOARTHRITIS, RIGHT 09/14/2017 AUBREY VARGHESE MD ([facility]) Ot Z02.71 ENCOUNTER FOR DISABILITY DETERMINATION 07/10/2018 MAHESH VAZQUEZ NEWSPAPER PEDDLER Ot E04.2 NONTOXIC MULTINODULAR GOITER 07/10/2018 MAHESH VAZQUEZ NEWSPAPER PEDDLER Ot Z12.31 ENCNTR SCREEN MAMMOGRAM FOR MALIGNANT NE 07/21/2018 MAHESH VAZQUEZ NEWSPAPER PEDDLER Ot E04.2 NONTOXIC MULTINODULAR GOITER 07/21/2018 MAHESH VAZQUEZ NEWSPAPER PEDDLER Ot Z12.31 ENCNTR SCREEN MAMMOGRAM FOR MALIGNANT NE 01/22/2019 MAHESH VAZQUEZ NEWSPAPER PEDDLER Ot 241.1 NONTOX MULTINODUL GOITER 01/22/2019 MAHESH VAZQUEZ NEWSPAPER PEDDLER Ot 241.0 NONTOX UNINODULAR GOITER 01/22/2019 MAHESH VAZQUEZ NEWSPAPER PEDDLER Ot V64.3 NO PROC FOR REASONS NEC 01/22/2019 TAYLOR MAHESH Lopez NEWSPAPER PEDDLER Ot 241.0 NONTOX UNINODULAR GOITER 01/22/2019 LATIA VAZQUEZ DO Ot 716.90 ARTHROPATHY NOS-UNSPEC 01/22/2019 LATIA VAZQUEZ DO Ot 737.30 IDIOPATHIC SCOLIOSIS 01/22/2019 MODESTO VAZQUEZIA Jesscia NEWSPAPER PEDDLER Ot 737.30 IDIOPATHIC SCOLIOSIS 01/22/2019 MODESTO VAZQUEZIA Jessica NEWSPAPER PEDDLER Ot K76.89 OTHER SPECIFIED DISEASES OF LIVER 01/22/2019 MAHESH VAZQUEZP Ot R00.2 PALPITATIONS 01/22/2019 LATIA VAZQUEZ DO Ot R00.2 PALPITATIONS 01/22/2019 LATIA VAZQUEZ DO Ot R01.1 CARDIAC MURMUR, UNSPECIFIED 01/22/2019 LATIA VAZQUEZ DO Ot R06.00 DYSPNEA, UNSPECIFIED 01/22/2019 LATIA VAZQUEZ DO Ot R09.89 OTH SYMPTOMS AND SIGNS INVOLVING THE CIR 01/22/2019 LATIA VAZQUEZ DO Ot R10.13 EPIGASTRIC PAIN 01/22/2019 LATIA VAZQUEZ DO Ot R10.13 EPIGASTRIC PAIN 01/22/2019 AUBREY VARGHESE MD ([facility]) Ot M17.11 UNILATERAL PRIMARY OSTEOARTHRITIS, RIGHT 01/22/2019 AUBREY VARHGESE MD ([facility]) Ot Z02.71 ENCOUNTER FOR DISABILITY DETERMINATION 01/24/2019 YURY MAZARIEGOS MD Ot G47.10 HYPERSOMNIA, UNSPECIFIED 01/24/2019 YURY MAZARIEGOS MD Ot G47.36 SLEEP RELATED HYPOVENTILATION IN CONDITI 01/24/2019 YURY MAZARIEGOS MD Ot I1 0 ESSENTIAL (PRIMARY) HYPERTENSION 01/24/2019 YURY MAZARIEGOS MD Ot R06.83 SNORING 01/28/2019 YURY MAZARIEGOS MD Ot G47.10 HYPERSOMNIA, UNSPECIFIED 01/28/2019 YURY MAZARIEGOS MD Ot G47.36 SLEEP RELATED HYPOVENTILATION IN CONDITI 01/28/2019 YURY MAZARIEGOS MD Ot I1 0 ESSENTIAL (PRIMARY) HYPERTENSION 01/28/2019 YURY MAZARIEGOS MD Ot R06.83 SNORING 05/16/2019 GASTELUMYARON NEWSPAPER PEDDLER Ot M54.9 DORSALGIA, UNSPECIFIED 05/16/2019 ORIANA YARON Brown NEWSPAPER PEDDLER Ot R26.89 OTHER ABNORMALITIES OF GAIT AND MOBILITY 05/31/2019 YARON GASTELUM NEWSPAPER PEDDLER Ot M54.9 DORSALGIA, UNSPECIFIED 05/31/2019 YARON GASTELUM NEWSPAPER PEDDLER Ot R26.89 OTHER ABNORMALITIES OF GAIT AND MOBILITY 10/05/2019 W F33.0 Megan r depressive disorder, recurrent, mild [place] 10/05/2019 W F41.1 Gene ralized anxiety disorder Kris [place] 10/05/2019 W I10 Essent ial (primary) hypertension Kris, [place] 10/05/2019 W K21.9 Marciano ro-esophageal reflux disease without esophagitis Kris [place] 10/17/2019 W Z12.31 Enc ounter for screening mammogram for malignant neoplasm of breast Kris [place] 10/19/2019 YURY MAZARIEGOS MD Ot M85.80 OTH DISRD OF BONE DENSITY AND STRUCTURE, 10/19/2019 YURY MAZARIEGOS MD Ot Z12.31 ENCNTR SCREEN MAMMOGRAM FOR MALIGNANT NE 10/19/2019 YURY MAZARIEGOS MD Ot Z13.820 ENCOUNTER FOR SCREENING FOR OSTEOPOROSIS 10/19/2019 YURY MAZARIEGOS MD Ot Z78.0 ASYMPTOMATIC MENOPAUSAL STATE 10/23/2019 W J01.80 Oth er acute sinusitis Carmelina Rosen 10/23/2019 W J30.89 Oth er allergic rhinitis Carmelina Rosen 10/24/2019 CARMELINA ROSEN ASSISTANT SPA MANAGER Ot R92.2 INCONCLUSIVE MAMMOGRAM 10/24/2019 W J01.80 Oth er acute sinusitis Carmelina Rosen 10/24/2019 W J30.89 Oth er allergic rhinitis Carmelina Rosen 11/06/2019 YURY MAZARIEGOS MD Ot M85.80 OTH DISRD OF BONE DENSITY AND STRUCTURE, 11/06/2019 YURY MAZARIEGOS MD Ot Z12.31 ENCNTR SCREEN MAMMOGRAM FOR MALIGNANT NE 11/06/2019 YURY MAZARIEGOS MD Ot Z13.820 ENCOUNTER FOR SCREENING FOR OSTEOPOROSIS 11/06/2019 YURY MAZARIEGOS MD Ot Z78.0 ASYMPTOMATIC MENOPAUSAL STATE 12/25/2019 LATIA VAZQUEZ DO Ot 716.90 ARTHROPATHY NOS-UNSPEC 12/25/2019 VAZQUEZ DO, LATIA Geller Ot 737.30 IDIOPATHIC SCOLIOSIS 12/25/2019 VAZQUEZ, MAHESH Lopez NEWSPAPER PEDDLER Ot 737.30 IDIOPATHIC SCOLIOSIS 12/25/2019 VAZQUEZ MAHESH Lopez NEWSPAPER PEDDLER Ot K76.89 OTHER SPECIFIED DISEASES OF LIVER 12/25/2019 MAHESH VAZQUEZ Ot R00.2 PALPITATIONS 12/25/2019 VAZQUEZ DO, LATIA Duyen Ot R00.2 PALPITATIONS 12/25/2019 VAZQUEZ DO, LATIA Geller Ot R01.1 CARDIAC MURMUR, UNSPECIFIED 12/25/2019 VAZQUEZ LATIA JOLLEY Ot R06.00 DYSPNEA, UNSPECIFIED 12/25/2019 VAZQUEZ , LATIA Geller Ot R09.89 OT SYMPTOMS AND SIGNS INVOLVING THE CIR 12/25/2019 VAZQUEZ , LATIA Geller Ot R10.13 EPIGASTRIC PAIN 12/25/2019 VAZQUEZ LATIA JOLLEY Ot R10.13 EPIGASTRIC PAIN 12/25/2019 AUBREY VARGHESE MD ([facility]) Ot M17.11 UNILATERAL PRIMARY OSTEOARTHRITIS, RIGHT 12/25/2019 AUBREY VARGHESE MD ([facility]) Ot Z02.71 ENCOUNTER FOR DISABILITY DETERMINATION 12/25/2019 YURY MAZARIEGOS MD Ot M85.80 OTH DISRD OF BONE DENSITY AND STRUCTURE, 12/25/2019 YURY MAZARIEGOS MD Ot Z12.31 ENCNTR SCREEN MAMMOGRAM FOR MALIGNANT NE 12/25/2019 YURY MAZARIEGOS MD Ot Z13.820 ENCOUNTER FOR SCREENING FOR OSTEOPOROSIS 12/25/2019 YURY MAZARIEGOS MD Ot Z78.0 ASYMPTOMATIC MENOPAUSAL STATE Procedures There is no data. Results Test Result Range Coronavirus SARS-CoV-2 SO 2018 - 0 07:51 Coronavirus Ab [Units/volume] in Serum Negative Negative Encounters ACCT No. Visit Date/Time Discharge Status Pt. Type Provider Facility Loc./Unit Complaint [id number] 11/23/2018 13:41:48 11/23/2018 23:59:5 9 CLS Outpatient [id number] 01/17/2020 05:41:00 020 15:05:00 DIS Outpatient SHAYY COOK DO Via [facility] PREOP COLONOSCOPY/EGD [id number] 01/01/2020 10:20:00 23:59:59 CLS Preadmit SHAYY COOK DO Via [facility] ENDO SCREENING/GERD [id number] 12/25/2019 05:40:00 12:00:00 DIS Outpatient SHAYY COOK DO Via [facility] PREOP COLONOSCOPY/EGD [id number] 10/24/2019 12:45:00 23:59:59 CLS Preadmit CARMELINA ROSEN APRN Via [facility] RAD BILAT BREAST DENSITY [id number] 10/16/2019 13:01:00 23:59:59 CLS Outpatient YURY MAZARIEGOS MD Via [facility] RAD SCREENING/POSTMENOPAUS AL [id number] 05/31/2019 11:15:00 019 12:12:00 DIS Outpatient YARON GASTELUMP Via [facility] REHAB BACK PAIN [id number] 01/23/2019 19:44:00 06:10:00 DIS Outpatient YURY MAZARIEGOS MD Via [facility] SLEEP SLEEP RELATED HYPOVENT ILATION [id number] 09/13/2017 09:55:00 018 23:59:59 CLS Outpatient AUBREY VARGHESE MD ([facility]) Via [facility] RAD DDU [id number] 05/02/2017 11:09:00 017 23:59:59 CLS Outpatient MAHESH VAZQUEZ NEWSPAPER PEDDLER Via [facility] RAD SCREENING [id number] 04/18/2017 14:58:00 017 23:59:59 CLS Preadmit MAHESH VAZQUEZ NEWSPAPER PEDDLER Via [facility] RAD THYROID NODULE [id number] 07/26/2016 09:53:00 016 23:59:59 CLS Outpatient LATIA VAZQUEZ DO Via [facility] CARD R10.3 [id number] 06/22/2016 09:37:00 23:59:59 CLS Outpatient LATIA VAZQUEZ DO Via [facility] RAD R10.13 [id number] 10/17/2015 16:16:00 11:21:00 DIS Outpatient SHERLYN SAUCEDO MD Via [facility] REHAB SCOLIOSIS [id number] 07/11/2015 06:56:00 23:59:59 CLS Outpatient MAHESH VAZQUEZ NEWSPAPER PEDDLER Via [facility] CARD PALPITATIONS [id number] 07/10/2015 11:09:00 23:59:59 CLS Outpatient LATIA VAZQUEZ DO Via [facility] CARD CAROTID BRUIT,H EART MURMER,DYSPNEA [id number] 05/20/2015 10:04:00 23:59:59 CLS Outpatient MODESTO VAZQUEZIA L NEWSPAPER PEDDLER Via [facility] RAD ABD CT [id number] 05/20/2015 09:44:00 15:15:00 DIS Outpatient MODESTO VAZQUEZIA L NEWSPAPER PEDDLER Via [facility] RAD ABD CT [id number] 05/07/2015 13:04:00 23:59:59 CLS Outpatient MODESTO VAZQUEZIA L NEWSPAPER PEDDLER Via [facility] RAD PAIN WITH RADIC ULOPATHY [id number] 02/13/2015 11:18:00 23:59:59 CLS Outpatient LATIA VAZQUEZ DO Via [facility] RAD SCOLOSIS [id number] 02/10/2015 11:19:00 015 23:59:59 CLS Outpatient LATIA VAZQUEZ DO Via [facility] RAD ARTHRITIS [id number] 06/20/2014 11:31:00 014 23:59:59 CLS Outpatient MAHESH VAZQUEZ NEWSPAPER PEDDLER Via [facility] CARD THYROID NODULE [id number] 06/18/2014 11:12:00 23:59:59 CLS Outpatient MAHESH VAZQUEZ Via [facility] CARD THYROID NODULE [id number] 03/27/2014 12:37:00 23:59:59 CLS Outpatient MAHESH VAZQUEZ Via [facility] RAD THYROIDMEGALLY [id number] 05/30/2013 15:01:00 23:59:59 CLS Outpatient LATIA VAZQUEZ DO Via [facility] RAD ARTHRITIS [id number] 05/09/2013 15:52:00 23:59:59 CLS Outpatient TENISHA CADENA, SHARAD Corbett Via [facility] CARD PREOP [id number] 03/14/2013 14:19:00 23:59:59 CLS Outpatient KRYSTAL HUERTA DO Via [facility] RAD ABN MAMMOGRAM [id number] 03/05/2013 11:17:00 23:59:59 CLS Outpatient KRYSTAL HUERTA DO Via [facility] RAD SCREENING
[2020-01-22] MEDS ORDERED: LACTATED RINGERS 1,000 ML IV ONE (07:10)
[2020-01-22] MEDS ORDERED: HURRICAINE EXT TUBE (BENZOCAINE) XX PRN (07:15)
[2020-01-22] MEDS ORDERED: proPOfol 200 MG/20 ML (DIPRIVAN) VIAL IV ONE (07:35)
[2020-01-22] MEDS ORDERED: MIDAZOLAM 2 MG/2 ML (VERSED) VIAL ONE (07:35)
[2020-01-22] MEDS ORDERED: HURRICAINE EXT TUBE (BENZOCAINE) ONE (08:14)
[2020-01-22 08:50] VITALS: BP 106/57
--- NOTE | 2020-01-22 08:53 | Progress Note-Post Operative ---
Post-Operative Progess Note Surgeon (s)/Mothercraft Nurse (s) Surgeon SHAYY COOK DO Mother[employer] Nurse: na Pre-Operative Diagnosis gerd, screening colonoscopy Post-Operative Diagnosis hiatal hernia, slight gastritis, sigmoid polyp, diverticulosis minimal Procedure & Operative Findings Date of Procedure 01/22/20 Procedure Performed/Findings egd c biopsies, colonoscopy c hot bx polypectomy sigmoid Anesthesia Type per [facility] Estimated Blood Loss Estimated blood loss (mL): none Specimens/Packing Specimens Removed antrum, body, ge, sigmoid polyp SHAYY COOK DO Jan 22, 2020 08:53
[2020-01-22] MEDS ORDERED: SUCR1TAB36 PO (08:54)
[2020-01-22 08:55] VITALS: BP 112/60
--- NOTE | 2020-01-22 08:55 | Discharge Inst-Simple/Standard ---
Discharge Inst-Standard Patient Instructions/Follow Up Plan of Care/Instructions/FU: 2 weeks Herman Activity as Tolerated: Yes Discharge Diet: Regular Diet (high fiber) SHAYY COOK DO Jan 22, 2020 08:55
[2020-01-22 09:00] VITALS: BP 128/61
[2020-01-22 09:25] VITALS: BP 137/67
[2020-01-22 09:30] VITALS: BP 137/67
--- NOTE | 2020-01-22 12:26 | Anesthesia-General Post-Op ---
MAC Patient Condition Mental Status/LOC: Same as Preop Cardiovascular: Satisfactory Nausea/Vomiting: Absent Respiratory: Satisfactory Pain: Controlled Complications: Absent Post Op Complications Complications None Follow Up Care/Instructions Patient Instructions None needed. Anesthesiology Discharge Order Discharge Order Patient was seen this morning after the procedure and she was doing well, no complaints, stable vital signs, no apparent adverse anesthesia problems. WENDY LR DO Jan 22, 2020 12:25
--- NOTE | 2020-01-22 12:30 | OPERATIVE REPORT ---
DATE OF SERVICE: 01/22/2020 PREOPERATIVE DIAGNOSES: Gastroesophageal reflux disease and screening colonoscopy. POSTOPERATIVE DIAGNOSES: Hiatal hernia, slight gastritis, sigmoid colon polyp, diverticulosis. PROCEDURE: EGD with biopsies, colonoscopy with hot biopsy, polypectomy. SURGEON: Shayy Sutton DO ANESTHESIA: Per MDA. ESTIMATED BLOOD LOSS: None. COMPLICATIONS: None. INDICATIONS: The patient is a 64-year-old female with worsening reflux and needing screening colonoscopy. She understands risks and benefits of procedure and wished to proceed with procedure. Consent was signed in the chart. DESCRIPTION OF PROCEDURE: The patient was taken to the endoscopy suite, placed in left lateral recumbent position. Timeout was performed. Scope was inserted in mouth, down the esophagus, stomach and into the duodenum without difficulty. There were no polyps, masses or ulcerations within the duodenum. Scope was slowly retracted back in the stomach where it was further insufflated. Slight gastritis appearance. Biopsy of the antrum and body were obtained. Scope was retroflexed noting a hiatal hernia, no other pathology noted. Scope was returned to its normal position, slowly withdrawn to the distal esophagus. Biopsy of the GE junction was obtained. Scope was then slowly retracted back to completely remove noting no other pathology. Digital rectal exam was performed. There were no palpable polyps, masses or ulcerations. Scope was inserted in the rectum and advanced all the way to cecum with minimal difficulty. Prep was adequate. Scope was then slowly retracted back. There were no polyps, or ulcerations within the cecum, ascending, transverse and descending colon. In sigmoid colon, a small polyp was present, which hot biopsy polypectomy was performed. A minimal amount of diverticulosis is present. Scope was then continuously retracted back in the rectum, where it was also retroflexed. The small polyp in the sigmoid colon, hot biopsy polypectomy was performed. Once scope was retroflexed in the rectum, scope was returned to its normal position and slowly withdrawn until completely removed. The patient tolerated procedure well without any complications. She was taken to recovery room in stable condition. RECOMMENDATIONS: The patient will continue on Protonix. We will add Carafate 1 gram four times a day. We will see how her symptoms do with this regimen. We will follow up on pathology of hot biopsy polypectomy of the sigmoid colon polyp. The patient will need repeat colonoscopy in 5 years, any issues before that be seen at that time. Recommend high fiber diet due to diverticulosis. Job ID: [id number] DocumentID: [id number] Dictated Date: 01/22/2020 08:58:43 [place] Hiker Date: 01/22/2020 12:29:42 Dictated By: SHAYY SUTTON DO
== END 2020-01-22 09:30 | disposition home or self-care (01) ==
LOC: ENDO 06:55
PROVIDERS: ATTEND Surgery
DX: Z12.11 Encounter for screening for malignant neoplasm of colon (principal); D12.5 Benign neoplasm of sigmoid colon; K21.0 Gastro-esophageal reflux disease with esophagitis; K29.70 Gastritis, unspecified, without bleeding; K44.9 Diaphragmatic hernia without obstruction or gangrene; K57.30 Diverticulosis of large intestine without perforation or abscess without bleeding; I10 Essential (primary) hypertension; G43.909 Migraine, unspecified, not intractable, without status migrainosus; M06.9 Rheumatoid arthritis, unspecified; F32.9 Major depressive disorder, single episode, unspecified; F41.9 Anxiety disorder, unspecified; Z79.899 Other long term (current) drug therapy; Z83.3 Family history of diabetes mellitus

== ENCOUNTER → 2021-02-12 | Outpatient (CLI) | payer MEDICARE, OTHER ==
[~2021-02-12] MED LIST changes: +ESCI-2 PO; -ESCI10TA55 PO; -LISI10TA2 PO; +LISI10TA25 PO; -PANT40TA3 PO; +PANT40TA52 PO; +SUCR1TAB36 PO
--- NOTE | 2021-02-12 19:34 | Diagnostic Imaging Report ---
INDICATION: Routine screening. COMPARISON: Prior mammograms from 10/16/2019 and 05/02/2017. EXAMINATION: 2D and 3D bilateral screening mammography was performed with CAD. The current study was also evaluated with a Computer Aided Detection (CAD) system. FINDINGS: Scattered fibroglandular densities are identified, bilaterally. The parenchymal pattern is stable. Benign nodular density in the inferior right breast appears stable. No new mass or malignant appearing microcalcifications are seen. Axillae are unremarkable. IMPRESSION: No mammographic features suspicious for malignancy are identified. ACR BI-RADS Category 2: Benign findings. Result letter will be mailed to the patient. Note: At least 10% of breast cancer is not imaged by mammography. Dictated by: Dictated on workstation # [id number]
== END ==
LOC: RAD 11:15
PROVIDERS: ATTEND Nurse Practitioner Family
DX: Z12.31 Encounter for screening mammogram for malignant neoplasm of breast (principal)
CPT/HCPCS: 77063; 77067

== ENCOUNTER → 2021-11-11 | Outpatient (CLI) | payer MEDICARE, OTHER ==
[~2021-11-11] MED LIST changes: -DULO60CA6 PO; +DULO60CA7 PO; -LISI1TAB29 PO; +LISI1TAB44 PO
== END ==
LOC: CARD 13:30
PROVIDERS: ATTEND Internal Medicine Cardiovascular Disease
DX: R06.09 Other forms of dyspnea (principal)
CPT/HCPCS: 93306

== ENCOUNTER → 2023-06-20 | Outpatient (CLI) | payer MEDICARE ==
--- NOTE | 2023-06-20 16:39 | Diagnostic Imaging Report ---
EXAMINATION: 3D bilateral screening mammogram with CAD. INDICATION: Screening. COMPARISON: This study was compared to the prior exam of 02/12/2021. PERSONAL HISTORY: At this time, there are no current complaints. FINDINGS: The breasts are heterogeneously dense which could obscure small masses. In the midportion of the left breast approximately 6 cm from the nipple, there is a small 5-6 mm oval asymmetry. The tomographic images suggest this finding is a benign process as it has a smooth border; however, as it has developed in the interval since the prior exam, I would recommend that ultrasound of the left breast be performed to better characterize this finding. The overall appearance of the breasts has not changed significantly otherwise. There is no primary or secondary sign of malignancy noted. IMPRESSION: Ultrasound would be recommended for further evaluation of the newly developed benign-appearing nodular asymmetry in the midportion of the left breast. ACR BI-RADS Category 0: Incomplete. (Needs additional imaging evaluation). Result letter will be mailed to the patient. Note: At least 10% of breast cancer is not imaged by mammography. Dictated by: Dictated on workstation # [id number]
== END ==
LOC: RAD 10:54
PROVIDERS: ATTEND Family Medicine
DX: Z12.31 Encounter for screening mammogram for malignant neoplasm of breast (principal); N64.89 Other specified disorders of breast
CPT/HCPCS: 77063; 77067